=== PATIENT | female | born 1970 | race Caucasian/White ===

== ENCOUNTER → 2018-01-20 | Outpatient (CLI) | payer OTHER ==
--- NOTE | 2018-01-21 08:28 | MM ---
Reason for exam: screening (asymptomatic). Last mammogram was performed 1 year and 10 months ago. History: Benign left mammotome panel of the left breast, February 14, 2010. Physical Findings: A clinical breast exam by your physician is recommended on an annual basis and results should be correlated with mammographic findings. MG Screening Mammo w CAD Bilateral CC and MLO view(s) were taken. Prior study comparison: March 26, 2016, bilateral MG screening mammo w CAD. February 11, 2012, CAD bilateral diagnostic mammogram. The breast tissue is heterogeneously dense. This may lower the sensitivity of mammography. Stable calcifications in the left breast. There is no discrete abnormality. No significant changes when compared with prior studies. ASSESSMENT: Benign, BI-RAD 2 RECOMMENDATION: Routine screening mammogram of both breasts in 1 year.
== END | disposition home or self-care (01) ==
LOC: RADMAMWWP 14:21
PROVIDERS: ATTEND Family Medicine
DX: Z12.31 Encounter for screening mammogram for malignant neoplasm of breast (principal)
CPT/HCPCS: 77067

== ENCOUNTER 2018-02-08 04:48 | Emergency (ER) | payer OTHER ==
[2018-02-08 04:55] VITALS: BP 168/79; PULSE 111; RESP 20; TEMP 97.3
--- NOTE | 2018-02-08 05:13 | ED ---
General Adult HPI - General Chief complaint: Skin/Abscess/Foreign Body Stated complaint: bleeding post surgery Time Seen by Provider: 02/08/18 04:50 Source: patient, family, RN notes reviewed Mode of arrival: ambulatory Limitations: no limitations - History of Present Illness Initial comments: this is a 48-year-old female who states she had surgery on her right buttocks to remove melanoma on . Patient states since then she can't get it to stop bleeding and she continues to have blood coming from that site. Patient denies any increased pain. Patient denies any fever. Patient states she called her surgeon but was unable to go down and see him because she has no transportation. Patient denies any other symptoms. Patient denies any abdominal pain. Patient denies any blood thinners patient denies any other sites of bleeding. - Related Data Home Medications Medication Instructions Recorded Confirmed Vitamin D3(Unknown Dose) 1 tab PO HS 07/02/16 02/08/18 diphenhydrAMINE [Benadryl] 25 mg PO Q6HR PRN 07/02/16 02/08/18 oxyCODONE HCL [Oxyir] 5 mg PO Q6H PRN 02/08/18 02/08/18 Previous Rx's Medication Instructions Recorded Ranitidine HCl [Zantac] 300 mg PO HS #10 tab 07/02/16 predniSONE 50 mg PO DAILY #5 tab 07/02/16 Allergies Allergy/AdvReac Type Severity Reaction Status Date / Time sulfamethoxazole Allergy Rash/Hives Verified 02/08/18 04:54 [From Bactrim] trimethoprim [From Bactrim] Allergy Rash/Hives Verified 02/08/18 04:54 Review of Systems ROS Statement: Those systems with pertinent positive or pertinent negative responses have been documented in the HPI. ROS Other: All systems not noted in ROS Statement are negative. Past Medical History Past Medical History: No Reported History History of Any Multi-Drug Resistant Organisms: None Reported Past Surgical History: Appendectomy, Tubal Ligation Additional Past Surgical History / Comment(s): melanoma removed right buttock Past Anesthesia/Blood Transfusion Reactions: No Reported Reaction Past Psychological History: No Psychological Hx Reported Smoking Status: Never smoker Past Alcohol Use History: None Reported Past Drug Use History: None Reported General Exam - General Exam Comments Initial Comments: GENERAL Patient is well-developed and well-nourished. Patient is in mild distress. EYES Patient's pupils are equal and round. Extraocular motion is intact SKIN Unremarkable NEURO The patient is alert and oriented 3 PYSCH Patient has normal interpersonal interactions. MUSCULOSKELETAL Right buttocks has an surgical incision and there is clot hanging out of the medial aspect of the incision upon slight palpation large amounts of clotted blood came out of the incision site. Limitations: no limitations Course Vital Signs 02/08/18 04:50 Temperature 97.3 F L Pulse Rate 111 H Respiratory 20 Rate Blood Pressure 168/79 O2 Sat by Pulse 97 Oximetry Medical Decision Making - Medical Decision Making With some mild pressure I removed copious amounts of clotted blood. Disposition Clinical Impression: Hematoma of surgical wound of skin due to and after surgical procedure Disposition: HOME SELF-CARE Condition: Good Instructions: Hematoma (ED) Is patient prescribed a controlled substance at discharge?: No Referrals: Romain Marquez MD [Primary Care Provider] - 1-2 days Time of Disposition: 05:13
== END 2018-02-08 05:30 | disposition home or self-care (01) ==
LOC: EC 04:48
DX: L76.32 Postprocedural hematoma of skin and subcutaneous tissue following other procedure (principal); Z85.820 Personal history of malignant melanoma of skin; Z88.2 Allergy status to sulfonamides
CPT/HCPCS: 99283

== ENCOUNTER → 2018-06-02 | Outpatient (CLI) | payer OTHER ==
--- NOTE | 2018-06-03 16:01 | MR ---
EXAMINATION TYPE: MR brain wo/w con DATE OF EXAM: 06/02/2018 COMPARISON: NONE HISTORY: Melanoma TECHNIQUE: Multiplanar, multisequence images of the brain and brainstem is performed without and with IV contras t, utilizing 9.5 mL intravenous Gadavist . FINDINGS: Diffusion weighted images demonstrate no evidence of a recent infarct or other diffusion ab normality. There is no extra-axial fluid collection .There are 3 punctate foci of nonspecific white matter changes that are T2/FLAIR hyperintense. Two are seen within the left frontal lobe on image 17 of FLAIR and fat sat axial sequence and one seen within the right temporal lobe on image 10. The hari tricular system and cisternal spaces are normal in size and appearance. The brain volume is age appr opriate. Midline structures demonstrate normal morphology. The craniocervical junction appears within normal limits. Post contrast images demonstrate no abnormal enhancement. The dural venous sinuses appear pa tent. The visualized sinuses are clear and the globes are intact. IMPRESSION: 1. No evidence of intracranial metastasis or acute infarct. 2. Mild burden nonenhancing nonspecific white matter change, most commonly on the basis of microangio marko although in this distribution sequela of migraines could be considered.
== END | disposition home or self-care (01) ==
LOC: RADMRIMAIN 14:05
PROVIDERS: ATTEND Internal Medicine Hematology & Oncology
DX: R90.82 White matter disease, unspecified (principal); C43.51 Malignant melanoma of anal skin
CPT/HCPCS: 70553; A9581

== ENCOUNTER → 2018-06-11 | Outpatient (CLI) | payer OTHER ==
--- NOTE | 2018-06-12 21:59 | PE ---
EXAMINATION TYPE: PET CT fusion whole body DATE OF EXAM: 06/11/2018 COMPARISON: NONE HISTORY: Melanoma initial staging study diagnosed of the anal skin February 03, 2018 TECHNIQUE: Following the intravenous administration of 11.463 mCi of F-18 FDG, whole body images are performed from the top of skull to the bottom of feet. Images are reviewed on the computer in the c oronal, axial, and sagittal planes. Reconstructed rotating images are created on independent worksta tion and reviewed on the computer. A noncontrast CT is performed in conjunction with the PET scan. SCAN: Initial Scan FINDINGS: HEAD AND NECK: No suspicious hypermetabolic subcutaneous nodule or lymph node identified in the head or neck. CHEST, MEDIASTINUM, AND HILAR REGION: No suspicious hypermetabolic uptake is present. ABDOMEN AND PELVIS: No suspicious hypermetabolic uptake is identified. Asymmetric thickening without hypermetabolic uptake right aspect of the anus axial image 265 likely reflects healing scar from prio r melanoma excision. OSSEOUS STRUCTURES: No suspicious hypermetabolic uptake is seen. EXTREMITIES: No suspicious hypermetabolic uptake is seen OTHER CT: There is heterogeneous thyroid with multiple low-density calcified nodules. Underlying goit er is felt present. Consider thyroid ultrasound follow-up based on clinical correlation. No hypermeta bolic uptake is present. There is moderate to large size hiatal hernia. Mild cardiomegaly is present. Numerous at least 20 calcified gallstones are seen dependently in the gallbladder. There is surgical scarring right groin region. Some bilateral lateral tilting of patella is seen. IMPRESSION: No suspicious areas identified to suggest metastatic malignancy or metastatic melanoma.
== END | disposition home or self-care (01) ==
LOC: RADPETMAIN 16:52
PROVIDERS: ATTEND Internal Medicine Hematology & Oncology
DX: C43.51 Malignant melanoma of anal skin (principal)
CPT/HCPCS: 78816; A9552

== ENCOUNTER 2018-08-09 09:15 | Emergency (ER) | payer OTHER ==
[2018-08-09 09:41] VITALS: BP 126/74; PULSE 78; RESP 18; TEMP 98.5
--- NOTE | 2018-08-09 10:06 | XR ---
EXAMINATION TYPE: XR chest 2V DATE OF EXAM: 08/09/2018 COMPARISON: NONE HISTORY: Cough, congestion for 3 days, and chest pain. TECHNIQUE: Frontal and lateral views of the chest are obtained. FINDINGS: There is no focal air space opacity, pleural effusion, or pneumothorax seen. The cardiac silhouette size is within normal limits. The osseous structures are intact. There is a suspected sm all hiatal hernia and tortuosity descending thoracic aorta. IMPRESSION: No acute cardiopulmonary process.
--- NOTE | 2018-08-09 10:41 | ED ---
General Adult HPI - General Chief complaint: Upper Respiratory Infection Stated complaint: congestion,cough Time Seen by Provider: 08/09/18 10:18 Source: patient, RN notes reviewed Mode of arrival: ambulatory Limitations: no limitations - History of Present Illness Initial comments: Patient 48-year-old female presenting to the emergency room today with chief complaint of cough congestion over the last 3 days. She does admit to sinus congestion. She states that he felt that it has gone down to the chest. She does not that she's coughing. Has not production. Doesn't that she has a pain pill her chest when she coughs. Patient denies any other complaints or symptoms. Patient denies any recent fever, chills, shortness of breath, chest pain, back pain, abdominal pain, nausea or vomiting, numbness or tingling, headaches or visual changes, or any other complaints. - Related Data Home Medications Medication Instructions Recorded Confirmed Acetaminophen [Tylenol Extra 500 mg PO Q6H PRN 08/09/18 08/09/18 Strength] Docusate [Colace] 100 mg PO DAILY PRN 08/09/18 08/09/18 Previous Rx's Medication Instructions Recorded Fluticasone Propionate [Flonase 1 - 2 spray EA NOSTRIL DAILY 5 08/09/18 Allergy Relief] Days ml guaiFENesin 400 mg PO Q4-6H #30 tablet 08/09/18 Allergies Allergy/AdvReac Type Severity Reaction Status Date / Time sulfamethoxazole Allergy Rash/Hives Verified 08/09/18 10:41 [From Bactrim] trimethoprim [From Bactrim] Allergy Rash/Hives Verified 08/09/18 10:41 Review of Systems ROS Statement: Those systems with pertinent positive or pertinent negative responses have been documented in the HPI. ROS Other: All systems not noted in ROS Statement are negative. Past Medical History Past Medical History: No Reported History History of Any Multi-Drug Resistant Organisms: None Reported Past Surgical History: Appendectomy, Tubal Ligation Additional Past Surgical History / Comment(s): melanoma removed right buttock Past Anesthesia/Blood Transfusion Reactions: No Reported Reaction Past Psychological History: Depression Smoking Status: Never smoker Past Alcohol Use History: Rare Past Drug Use History: None Reported General Exam - General Exam Comments Initial Comments: General: The patient is awake and alert, in no distress, and does not appear acutely ill. Eye: Pupils are equal, round and reactive to light. Extra-ocular movements are intact. No nystagmus. There is normal conjunctiva bilaterally. No signs of icterus. Ears, nose, mouth and throat: There are moist mucous membranes and no oral lesions. Neck: The neck is supple, there is no tenderness or JVD. Cardiovascular: There is a regular rate and rhythm. No murmur, rub or gallop is appreciated. Respiratory: Lungs are clear to auscultation, respirations are non-labored, breath sounds are equal. No wheezes, stridor, rales, or rhonchi. Musculoskeletal: Normal ROM, no tenderness. Sensation intact. Strength 5/5. Pulses equal bilaterally 2+. Neurological: A&O x 3. CN II-XII intact, There are no obvious motor or sensory deficits. Coordination appears grossly intact. Speech is normal. Skin: Skin is warm and dry and no rashes or lesions are noted. Psychiatric: Cooperative, appropriate mood & affect, normal judgment. Limitations: no limitations Course Vital Signs 08/09/18 09:39 Temperature 98.5 F Pulse Rate 78 Respiratory 18 Rate Blood Pressure 126/74 O2 Sat by Pulse 96 Oximetry EKG Findings - EKG Comments: EKG Findings:: EKG performed at 1043: Shows normal sinus rhythm at 72 beats per minute. MS interval 138. QRS 84. QT/QTC 388/424. No Acute ST changes. Medical Decision Making - Medical Decision Making Patient does admit to cough congestion with sinus congestion over the last 3 days. She states she feels that it settled down to the chest. Her lung sounds are clear. Chest x-ray shows no sign of pneumonia no other acute abnormality. Her EKG shows normal sinus rhythm. She admits to pain to the anterior chest wall when she coughs. It is reproduced on palpation. This felt that this pain is muscular skeletal due to her coughing patient will be treated for sinus infection with Flonase from also given cough medication. Advised follow-up the family doctor next 2 days return if symptoms increase worsen. Disposition Clinical Impression: Acute sinusitis Disposition: HOME SELF-CARE Condition: Good Instructions: Sinusitis (ED) Additional Instructions: Please use medication as discussed. Please follow-up with family doctor in the next 2 days of symptoms have not improved. Please return to emergency room if the symptoms increase or worsen or for any other concerns. Prescriptions: Fluticasone Propionate [Flonase Allergy Relief] 1 - 2 spray EA NOSTRIL DAILY 5 Days ml guaiFENesin 400 mg PO Q4-6H #30 tablet Is patient prescribed a controlled substance at d/c from ED?: No Referrals: Romain Marquez MD [Primary Care Provider] - 1-2 days Time of Disposition: 11:13
== END 2018-08-09 11:23 | disposition home or self-care (01) ==
LOC: EC 09:15
DX: J01.90 Acute sinusitis, unspecified (principal); Z85.820 Personal history of malignant melanoma of skin; Z88.2 Allergy status to sulfonamides
CPT/HCPCS: 71046; 93005; 99283

== ENCOUNTER 2019-07-22 14:48 | Emergency (ER) | payer OTHER ==
[2019-07-22 14:55] VITALS: BP 143/74; PULSE 80; RESP 18; TEMP 98.3
--- NOTE | 2019-07-22 15:34 | ED ---
General Adult HPI - General Chief complaint: Extremity Injury, Lower Stated complaint: rt heel pain Time Seen by Provider: 07/22/19 15:04 Source: patient, RN notes reviewed, old records reviewed Mode of arrival: wheelchair Limitations: no limitations - History of Present Illness Initial comments: 49-year-old female patient since he chief complaint of right heel and ankle pain. Patient reports approximately 3 weeks ago she dropped a 60 pound box on the medial aspect of her right foot region. Patient reported since then she's had continued pain. Patient has been ambulatory but with pain. Patient denies any other injury, denies any other complaints. Systemic: Pt denies fatigue, fever/chills, rash. Pt denies weakness, night sweats, weight loss. Neuro: Pt denies headache, visual disturbances, syncope or pre-syncope. HEENT: Pt denies ocular discharge or irritation, otalgia, rhinorrhea, pharyngitis or notable lymphadenopathy. Cardiopulmonary: Pt denies chest pain, SOB, heart palpitations, dyspnea on exertion. Abdominal/GI: Pt denies abdominal pain, n/v/d. : Pt denies dysuria, burning w/ urination, frequency/urgency. Denies new onset urinary or bowel incontinence. MSK: Pt denies myalgia, loss of strength or function in extremities. Neuro: Pt denies new onset weakness, paresthesias. - Related Data Home Medications Medication Instructions Recorded Confirmed Acetaminophen [Tylenol Extra 500 mg PO Q6H PRN 08/09/18 08/09/18 Strength] Docusate [Colace] 100 mg PO DAILY PRN 08/09/18 08/09/18 Previous Rx's Medication Instructions Recorded Fluticasone Propionate [Flonase 1 - 2 spray EA NOSTRIL DAILY 5 08/09/18 Allergy Relief] Days ml guaiFENesin 400 mg PO Q4-6H #30 tablet 08/09/18 Allergies Allergy/AdvReac Type Severity Reaction Status Date / Time sulfamethoxazole Allergy Rash/Hives Verified 07/22/19 14:55 [From Bactrim] trimethoprim [From Bactrim] Allergy Rash/Hives Verified 07/22/19 14:55 Review of Systems ROS Statement: Those systems with pertinent positive or pertinent negative responses have been documented in the HPI. ROS Other: All systems not noted in ROS Statement are negative. Past Medical History Past Medical History: No Reported History History of Any Multi-Drug Resistant Organisms: None Reported Past Surgical History: Appendectomy, Tubal Ligation Additional Past Surgical History / Comment(s): melanoma removed right buttock Past Anesthesia/Blood Transfusion Reactions: No Reported Reaction Past Psychological History: Depression Smoking Status: Never smoker Past Alcohol Use History: Rare Past Drug Use History: None Reported General Exam - General Exam Comments Initial Comments: Constitutional: NAD, AOX3, Pt has pleasant affect. HEENT: NC/AT, trachea midline, neck supple, no lymphadenopathy. Posterior pharynx non erythematous, without exudates. External ears appear normal, without discharge. Mucous membranes moist. Eyes PERRLA, EOM intact. There is no scleral icterus. No pallor noted. Cardiopulmonary: RRR, no murmurs, rubs or gallops, no JVD noted. Lungs CTAB in anterior and posterior romero. No peripheral edema. Abdominal exam: Abdomen soft and non-distended. Abdomen non-tender to palpation in all 4 quadrants. Bowel sounds active in LLQ. No hepatosplenomegaly. No ecchymosis Neuro: CN II-XII grossly intact. No nuchal rigidity. No raccon eyes, no lemus sign, no hemotympanum. No cervical spinal tenderness. MSK: Medial aspect of right foot mildly tender to palpation. Posterior heel mildly tender to palpation. No ecchymoses, no skin changes, plantar and dorsiflexion intact. Capillary refill less than 2 seconds. Sensation intact. No proximal tibia/fibula tenderness. No other tenderness. No posterior calf tenderness bilaterally, homans sign negative bilaterally. Posterior tibialis and radial pulse +2 bilaterally. Sensation intact in upper and lower extremities. Full active ROM in upper and lower extremities, 5/5 stregnth. Limitations: no limitations Course Vital Signs 07/22/19 14:53 Temperature 98.3 F Pulse Rate 80 Respiratory 18 Rate Blood Pressure 143/74 O2 Sat by Pulse 99 Oximetry Medical Decision Making - Medical Decision Making 49-year-old female patient since he chief complaint of right heel and ankle pain. Patient reports approximately 3 weeks ago she dropped a 60 pound box on the medial aspect of her right foot region. Patient reported since then she's had continued pain. Patient has been ambulatory but with pain. Patient denies any other injury, denies any other complaints. She will signs stable, afebrile. Physical exam displayed: Medial aspect of right foot mildly tender to palpation. Posterior heel mildly tender to palpation. No ecchymoses, no skin changes, plantar and dorsiflexion intact. Capillary refill less than 2 seconds. Sensation intact. No proximal tibia/fibula tenderness. No other tenderness. Plain film of foot and ankle did not display acute process. Plantar and Achilles tendon calculi heel spurs are present. Patient laboratory. Patient was discharged with orthopedic follow-up. Case discussed with Dr. Beaver. Disposition Clinical Impression: Foot pain Disposition: HOME SELF-CARE Condition: Stable Instructions (If sedation given, give patient instructions): Heel Spur (ED) Additional Instructions: Patient to adhere to previously discussed treatment plan and will take medication(s) as directed. Patient to follow up with PCP in 1-2 days. Patient to return to ED if symptoms do not improve. Follow-up with primary care provider and orthopedic consult tomorrow. Return to ER condition worsens. Is patient prescribed a controlled substance at d/c from ED?: No Referrals: Romain Marquez MD [Primary Care Provider] - 1-2 days Luis Hyde PAC [PHYSICIAN FI[employer]AR OPERATOR] - 1-2 days
--- NOTE | 2019-07-22 16:33 | XR ---
EXAMINATION TYPE: XR ankle complete RT DATE OF EXAM: 07/22/2019 COMPARISON: None HISTORY: Pain, dropped box on foot 3 weeks prior TECHNIQUE: Three-view right ankle FINDINGS: No acute fractures or dislocations are evident. Soft tissues appear normal. Ankle mortise i s intact. Plantar and Achilles tendon calcaneal heel spurs are present. IMPRESSION: 1. Normal three-view right ankle
--- NOTE | 2019-07-22 16:49 | XR ---
EXAMINATION TYPE: XR foot complete RT DATE OF EXAM: 07/22/2019 COMPARISON: None HISTORY: Dropped box on foot TECHNIQUE: Three-view right foot FINDINGS: No acute fractures or dislocations are evident. Joint spaces are preserved. Soft tissues ap pear normal. Plantar and Achilles tendon calcaneal heel spurs are present. IMPRESSION: 1. Three-view right foot
== END 2019-07-22 17:30 | disposition home or self-care (01) ==
LOC: EC 14:48
DX: M77.31 Calcaneal spur, right foot (principal); Z85.820 Personal history of malignant melanoma of skin; Z88.2 Allergy status to sulfonamides
CPT/HCPCS: 99284

== ENCOUNTER → 2019-09-05 | Outpatient (CLI) | payer OTHER ==
--- NOTE | 2019-09-06 10:11 | MM ---
Reason for exam: screening (asymptomatic). Last mammogram was performed 1 year and 7 months ago. History: Benign left mammotome panel of the left breast, February 14, 2010. Physical Findings: A clinical breast exam by your physician is recommended on an annual basis and results should be correlated with mammographic findings. MG Screening Mammo w CAD Bilateral CC and MLO view(s) were taken. Prior study comparison: January 20, 2018, bilateral MG screening mammo w CAD. March 26, 2016, bilateral MG screening mammo w CAD. The breast tissue is heterogeneously dense. This may lower the sensitivity of mammography. Benign appearing punctate bilateral calcifications. No suspicious abnormality. Left biopsy marker noted. No significant changes when compared with prior studies. ASSESSMENT: Benign, BI-RAD 2 RECOMMENDATION: Routine screening mammogram of both breasts in 1 year.
== END | disposition home or self-care (01) ==
LOC: RADMAMWWP 13:41
PROVIDERS: ATTEND Family Medicine
DX: Z12.31 Encounter for screening mammogram for malignant neoplasm of breast (principal)
CPT/HCPCS: 77067

== ENCOUNTER 2020-07-06 01:07 | Emergency (ER) | payer OTHER ==
[2020-07-06 01:12] VITALS: BP 143/84; PULSE 85; RESP 18; TEMP 98.2
[2020-07-06] MEDS ORDERED: dexAMETHasone 4 MG TAB PO STA (01:29)
--- NOTE | 2020-07-06 01:30 | ED ---
ENT HPI - General Chief complaint: ENT Stated complaint: Sore throat Time Seen by Provider: 07/06/20 01:19 Source: patient, family Mode of arrival: ambulatory Limitations: no limitations - History of Present Illness Initial comments: 50-year-old female presenting today for chief complaint of sore throat congestion and cough. Patient states she's had a sore throat congestion cough for the past 2 day she states is painful to swallow but she is able to do it she states she has tolerated oral secretions she denies any stridor. Patient denies any headache neck stiffness or fevers. Patient states she initially thought it was ALLERGIES believes that it could be she states she is taking Claritin for the past 2 days. Patient has no additional complaints she denies any chest pain or shortness of breath she appears well nontoxic on arrival in no acute respiratory distress. - Related Data Home Medications Medication Instructions Recorded Confirmed Acetaminophen [Tylenol Extra 500 mg PO Q6H PRN 08/09/18 08/09/18 Strength] Docusate [Colace] 100 mg PO DAILY PRN 08/09/18 08/09/18 Previous Rx's Medication Instructions Recorded Fluticasone Propionate [Flonase 1 - 2 spray EA NOSTRIL DAILY 5 08/09/18 Allergy Relief] Days ml guaiFENesin 400 mg PO Q4-6H #30 tablet 08/09/18 Allergies Allergy/AdvReac Type Severity Reaction Status Date / Time sulfamethoxazole Allergy Rash/Hives Verified 07/06/20 01:12 [From Bactrim] trimethoprim [From Bactrim] Allergy Rash/Hives Verified 07/06/20 01:12 Review of Systems ROS Statement: Those systems with pertinent positive or pertinent negative responses have been documented in the HPI. ROS Other: All systems not noted in ROS Statement are negative. Past Medical History Past Medical History: No Reported History History of Any Multi-Drug Resistant Organisms: None Reported Past Surgical History: Appendectomy, Tubal Ligation Additional Past Surgical History / Comment(s): melanoma removed right buttock Past Anesthesia/Blood Transfusion Reactions: No Reported Reaction Past Psychological History: Depression Smoking Status: Former smoker Past Alcohol Use History: Rare Past Drug Use History: None Reported General Exam - General Exam Comments Initial Comments: General: The patient is awake and alert, in no distress Eye: +3 mm pupils are equal, round and reactive to light, extra-ocular movements are intact. No nystagmus. There is normal conjunctiva bilaterally. No signs of icterus. Ears, nose, mouth and throat: There are moist mucous membranes and no oral lesions. Uvula midline. No tonsillar exudates. No tonsillar enlargement or masses. No tripoding drooling or stridor. Patient tolerating oral secretions Neck: The neck is supple, there is no tenderness or JVD. Cardiovascular: There is a regular rate and rhythm. No murmur, rub or gallop is appreciated. Respiratory: Lungs are clear to auscultation, respirations are non-labored, breath sounds are equal. No wheezes, stridor, rales, or rhonchi. Gastrointestinal: Soft, non-distended, non-tender abdomen without masses or organomegaly noted. There is no rebound or guarding present. Musculoskeletal: Normal ROM, no tenderness. Strength 5/5. Sensation intact. Radial pulses equal bilaterally 2+. Neurological: A&O x 3. CN II-XII intact grossly, There are no obvious motor or sensory deficits. Coordination appears grossly intact. Speech is normal. Skin: Skin is warm and dry and no rashes or lesions are noted. Psychiatric: Cooperative, appropriate mood & affect, normal judgment. Limitations: no limitations Course Vital Signs 07/06/20 01:08 Temperature 98.2 F Pulse Rate 85 Respiratory 18 Rate Blood Pressure 143/84 O2 Sat by Pulse 98 Oximetry Medical Decision Making - Medical Decision Making 50yo nontoxic appearing female presenting for sore throat, mild cough, congestion. Lungs clear. No fevers. Throat mild erythema no lesions. Uvulamidline. does not appear in distress. Patient swabs for strep and covid. She will be given decadron and discharged with PCP f/u, return for worsenign symptoms. Feel this is most likely viral in nature given the congestion cough with the sore throat. - Lab Data Lab Results 07/06/20 Range/Units 01:30 Group A Strep Rapid Negative (Negative) Disposition Clinical Impression: Congestion of nasal sinus, Pharyngitis Disposition: HOME SELF-CARE Condition: Good Instructions (If sedation given, give patient instructions): Upper Respiratory Infection (ED) Additional Instructions: Please use medication as discussed. Please follow-up with family doctor in the next 2 days.. Please return to emergency room if the symptoms increase or worsen or for any other concerns. Is patient prescribed a controlled substance at d/c from ED?: No Referrals: Romain Marquez MD [Primary Care Provider] - 1-2 days Time of Disposition: 01:30
== END 2020-07-06 01:40 | disposition home or self-care (01) ==
LOC: EC 01:07
DX: J02.9 Acute pharyngitis, unspecified (principal); R09.81 Nasal congestion; Z88.2 Allergy status to sulfonamides; Z88.1 Allergy status to other antibiotic agents; Z85.820 Personal history of malignant melanoma of skin; Z87.891 Personal history of nicotine dependence; Z20.828 Contact with and (suspected) exposure to other viral communicable diseases
CPT/HCPCS: 87081; 87430; 99283; U0003; J8540

== ENCOUNTER 2021-02-13 13:18 | Emergency (ER) | payer OTHER ==
[2021-02-13 13:23] VITALS: TEMP 97.9
[2021-02-13] MEDS ORDERED: KETOROLAC 15 MG/ML 1 ML VIAL IVP STA (13:47)
--- NOTE | 2021-02-13 13:51 | ED ---
General Adult HPI - General Chief complaint: Chest Pain Stated complaint: left arm pain and numbness Time Seen by Provider: 02/13/21 13:20 Source: patient, RN notes reviewed, old records reviewed Mode of arrival: wheelchair Limitations: no limitations - History of Present Illness Initial comments: This is a 51-year-old female with past medical history significant for hypertension. Patient also smoked but quit 20 years ago. Patient comes in today because she started having some sharp chest pain on the left side and in the middle of her chest which is reproducible with movement and also with palpation. Patient states she thinks she was a little short of breath but it may have dispensed anxiety because of the pain. Patient states she thought she felt a little numbness in the upper left arm but she has normal sensation there. Patient denies any recent fever chills or cough. Patient denies any diaphoretic episodes. Patient denies abdominal pain patient denies nausea vomiting diarrhea per patient denies any leg swelling or calf tenderness. Patient states she thinks she might of her self all working yesterday. - Related Data Home Medications Medication Instructions Recorded Confirmed Acetaminophen [Tylenol Extra 1,000 mg PO Q6H PRN 08/09/18 02/13/21 Strength] Docusate [Colace] 100 mg PO DAILY PRN 08/09/18 02/13/21 Chlorthalidone [Hygroton] 25 mg PO DAILY 02/13/21 02/13/21 Cholecalciferol [Vitamin D3 (25 25 mcg PO DAILY 02/13/21 02/13/21 Mcg = 1000 Iu)] Hydrocortisone Cream 1 applic TOPICAL BID PRN 02/13/21 02/13/21 [Hydrocortisone 2.5% Cream] Ibuprofen [Motrin] 800 mg PO Q8H PRN 02/13/21 02/13/21 Previous Rx's Medication Instructions Recorded Ibuprofen [Motrin] 600 mg PO Q6HR PRN #20 tab 02/13/21 Allergies Allergy/AdvReac Type Severity Reaction Status Date / Time sulfamethoxazole Allergy Rash/Hives Verified 02/13/21 14:41 [From Bactrim] trimethoprim [From Bactrim] Allergy Rash/Hives Verified 02/13/21 14:41 Review of Systems ROS Statement: Those systems with pertinent positive or pertinent negative responses have been documented in the HPI. ROS Other: All systems not noted in ROS Statement are negative. Past Medical History Past Medical History: No Reported History History of Any Multi-Drug Resistant Organisms: None Reported Past Surgical History: Appendectomy, Tubal Ligation Additional Past Surgical History / Comment(s): melanoma removed right buttock Past Anesthesia/Blood Transfusion Reactions: No Reported Reaction Past Psychological History: Depression Smoking Status: Former smoker Past Alcohol Use History: Rare Past Drug Use History: None Reported General Exam - General Exam Comments Initial Comments: GENERAL: Patient is well-developed and well-nourished. Patient is nontoxic and well-h ydrated and is in mild distress. ENT: Neck is soft and supple. No significant lymphadenopathy is noted. Oropharynx is clear. Moist mucous membranes. Neck has full range of motion without eliciting any pain. EYES: The sclera were anicteric and conjunctiva were pink and moist. Extraocular move ments were intact and pupils were equal round and reactive to light. Eyelids were unremarkable. PULMONARY: Unlabored respirations. Good breath sounds bilaterally. No audible rales rhonchi or wheezing was noted. CARDIOVASCULAR: There is a regular rate and rhythm without any murmurs gallops or rubs. Chest pain is reproducible with palpation and with movement of her arms. ABDOMEN: Soft and nontender with normal bowel sounds. SKIN: Skin is clear with no lesions or rashes and otherwise unremarkable. NEUROLOGIC: Patient is alert and oriented x3. Cranial nerves II through XII are grossly in tact. Motor and sensory are also intact. Patient has full sensation of the left arm. Normal speech, volume and content. Symmetrical smile. MUSCULOSKELETAL: Normal extremities with adequate strength and full range of motion. LYMPHATICS: No significant lymphadenopathy is noted PSYCHIATRIC: Normal psychiatric evaluation. Limitations: no limitations Course Vital Signs 02/13/21 02/13/21 13:20 14:05 Temperature 97.9 F Pulse Rate 77 Pulse Rate [ 75 [employer] ] Respiratory 18 Rate Blood Pressure 137/76 O2 Sat by Pulse 98 Oximetry Medical Decision Making - Medical Decision Making EKG shows normal sinus rhythm at 76 bpm NM interval is on a 44 QRS is 90 QT intervals 42 QTC is 452. Patient's EKG shows no ST segment elevation. Chest x-ray shows no acute abnormality. Patient received Toradol emergency department she was feeling considerably better afterwards. - Lab Data Result diagrams: 02/13/21 13:47 02/13/21 13:47 Lab Results 0402/13/21 02/13/21 Range/Units 13:47 13:47 13:47 WBC 6.4 (3.8-10.6) k/uL RBC 5.02 (3.80-5.40) m/uL Hgb 14.7 (11.4-16.0) gm/dL Hct 46.1 H (34.0-46.0) % MCV 91.9 (80.0-100.0) fL MCH 29.2 (25.0-35.0) pg MCHC 31.8 (31.0-37.0) g/dL RDW 14.7 (11.5-15.5) % Plt Count 320 (150-450) k/uL MPV 7.2 Neutrophils % 70 % Lymphocytes % 24 % Monocytes % 3 % Eosinophils % 1 % Basophils % 1 % Neutrophils # 4.4 (1.3-7.7) k/uL Lymphocytes # 1.5 (1.0-4.8) k/uL Monocytes # 0.2 (0-1.0) k/uL Eosinophils # 0.1 (0-0.7) k/uL Basophils # 0.0 (0-0.2) k/uL PT 10.4 (9.0-12.0) sec INR 1.0 (<1.2) APTT 24.5 (22.0-30.0) sec Sodium 138 (137-145) mmol/L Potassium 3.5 (3.5-5.1) mmol/L Chloride 97 L (98-107) mmol/L Carbon Dioxide 29 (22-30) mmol/L Anion Gap 12 mmol/L BUN 16 (7-17) mg/dL Creatinine 0.93 (0.52-1.04) mg/dL Est GFR (CKD-EPI)AfAm 82 (>60 ml/min/1.73 sqM) Est GFR (CKD-EPI)NonAf 71 (>60 ml/min/1.73 sqM) Glucose 120 H (74-99) mg/dL Calcium 10.3 H (8.4-10.2) mg/dL Magnesium 1.7 (1.6-2.3) mg/dL Total Bilirubin 0.5 (0.2-1.3) mg/dL AST 20 (14-36) U/L ALT 16 (4-34) U/L Alkaline Phosphatase 82 (38-126) U/L Troponin I (0.000-0.034) ng/mL Total Protein 8.3 H (6.3-8.2) g/dL Albumin 5.0 (3.5-5.0) g/dL 02/13/21 Range/Units 13:47 WBC (3.8-10.6) k/uL RBC (3.80-5.40) m/uL Hgb (11.4-16.0) gm/dL Hct (34.0-46.0) % MCV (80.0-100.0) fL MCH (25.0-35.0) pg MCHC (31.0-37.0) g/dL RDW (11.5-15.5) % Plt Count (150-450) k/uL MPV Neutrophils % % Lymphocytes % % Monocytes % % Eosinophils % % Basophils % % Neutrophils # (1.3-7.7) k/uL Lymphocytes # (1.0-4.8) k/uL Monocytes # (0-1.0) k/uL Eosinophils # (0-0.7) k/uL Basophils # (0-0.2) k/uL PT (9.0-12.0) sec INR (<1.2) APTT (22.0-30.0) sec Sodium (137-145) mmol/L Potassium (3.5-5.1) mmol/L Chloride (98-107) mmol/L Carbon Dioxide (22-30) mmol/L Anion Gap mmol/L BUN (7-17) mg/dL Creatinine (0.52-1.04) mg/dL Est GFR (CKD-EPI)AfAm (>60 ml/min/1.73 sqM) Est GFR (CKD-EPI)NonAf (>60 ml/min/1.73 sqM) Glucose (74-99) mg/dL Calcium (8.4-10.2) mg/dL Magnesium (1.6-2.3) mg/dL Total Bilirubin (0.2-1.3) mg/dL AST (14-36) U/L ALT (4-34) U/L Alkaline Phosphatase (38-126) U/L Troponin I <0.012 (0.000-0.034) ng/mL Total Protein (6.3-8.2) g/dL Albumin (3.5-5.0) g/dL Disposition Clinical Impression: Musculoskeletal chest pain Disposition: HOME SELF-CARE Instructions (If sedation given, give patient instructions): Chest Pain (ED) Prescriptions: Ibuprofen [Motrin] 600 mg PO Q6HR PRN #20 tab PRN Reason: For pain Is patient prescribed a controlled substance at d/c from ED?: No Referrals: Romain Marquez MD [Primary Care Provider] - 1-2 days Time of Disposition: 16:11
[2021-02-13 14:03] LABS: Basophils % (A) 1 %; Eosinophils # (A) 0.1 k/uL (0-0.7); Eosinophils % (A) 1 %; HCT 46.1 % (34.0-46.0); HGB 14.7 gm/dL (11.4-16.0); Lymphocytes # (A) 1.5 k/uL (1.0-4.8); Lymphocytes % (A) 24 %; MCH 29.2 pg (25.0-35.0); MCHC 31.8 g/dL (31.0-37.0); MCV 91.9 fL (80.0-100.0); Mean Platelet Volume 7.2; Monocytes # (A) 0.2 k/uL (0-1.0); Monocytes % (A) 3 %; Neutrophils # (A) 4.4 k/uL (1.3-7.7); Neutrophils % (A) 70 %; Platelet Count 320 k/uL (150-450); RBC 5.02 m/uL (3.80-5.40); RDW 14.7 % (11.5-15.5); WBC 6.4 k/uL (3.8-10.6)
--- NOTE | 2021-02-13 14:10 | XR ---
EXAMINATION TYPE: XR chest 2V DATE OF EXAM: 02/13/2021 COMPARISON: Chest x-ray August 09, 2018 HISTORY: Left-sided chest pain. TECHNIQUE: Frontal and lateral views of the chest are obtained. FINDINGS: Diminished inspiration on current study. There is no new suspicious focal air space opacity , pleural effusion, or pneumothorax seen. The cardiac silhouette size is more prominent and mildly e nlarged. Retrocardiac opacity consistent with moderate size hiatal hernia is redemonstrated and confi rmed on PET/CT 2018. The osseous structures are intact. IMPRESSION: No acute cardiopulmonary process. No significant change from prior.
[2021-02-13 14:11] LABS: Partial Thromboplastin Time 24.5 sec (22.0-30.0); Prothrombin Time 10.4 sec (9.0-12.0)
[2021-02-13 15:37] LABS: Calcium 10.3 mg/dL (8.4-10.2); Magnesium 1.7 mg/dL (1.6-2.3); Potassium 3.5 mmol/L (3.5-5.1); Total Bilirubin 0.5 mg/dL (0.2-1.3); Total Protein 8.3 g/dL (6.3-8.2)
[2021-02-13 16:22] VITALS: BP 129/65; PULSE 70; RESP 16
== END 2021-02-13 16:26 | disposition home or self-care (01) ==
LOC: EC 13:18
DX: R07.9 Chest pain, unspecified (principal); R20.0 Anesthesia of skin; M79.602 Pain in left arm; Z87.891 Personal history of nicotine dependence; Z88.1 Allergy status to other antibiotic agents; Z88.2 Allergy status to sulfonamides; Z85.820 Personal history of malignant melanoma of skin
CPT/HCPCS: 36415; 71046; 80053; 83735; 84484; 85025; 85610; 85730; 93005; 96374; 99285

== ENCOUNTER 2022-07-29 12:11 | Emergency (ER) | payer OTHER ==
[2022-07-29 12:22] VITALS: BP 162/80; PULSE 79; RESP 16; TEMP 98.2
[2022-07-29] MEDS ORDERED: ACET/COD 300 MG/30 MG STARTER PACK 6 TAB BTL PO STA (12:32)
--- NOTE | 2022-07-29 12:33 | ED ---
ENT HPI - General Chief complaint: Dental/Oral Stated complaint: rt side facial edema Time Seen by Provider: 07/29/22 12:23 Source: patient, RN notes reviewed Mode of arrival: ambulatory Limitations: no limitations - History of Present Illness Initial comments: 52-year-old female presents emergency Department with chief complaint of dental pain. She states the right upper area by her right ear, right upper molar. Patient states started a few days ago. Patient states that she's had no fevers chills and difficulty swallowing. Patient has ALLERGY to Bactrim. - Related Data Home Medications Medication Instructions Recorded Confirmed Acetaminophen [Tylenol Extra 1,000 mg PO Q6H PRN 08/09/18 02/13/21 Strength] Docusate [Colace] 100 mg PO DAILY PRN 08/09/18 02/13/21 Chlorthalidone [Hygroton] 25 mg PO DAILY 02/13/21 02/13/21 Cholecalciferol [Vitamin D3 (25 25 mcg PO DAILY 02/13/21 02/13/21 Mcg = 1000 Iu)] Hydrocortisone Cream 1 applic TOPICAL BID PRN 02/13/21 02/13/21 [Hydrocortisone 2.5% Cream] Ibuprofen [Motrin] 800 mg PO Q8H PRN 02/13/21 02/13/21 Previous Rx's Medication Instructions Recorded Ibuprofen [Motrin] 600 mg PO Q6HR PRN #20 tab 02/13/21 Ibuprofen [Motrin] 600 mg PO Q8HR PRN #20 tab 07/29/22 Penicillin V Potassium [Pen Vee K] 500 mg PO QID #40 tablet 07/29/22 Allergies Allergy/AdvReac Type Severity Reaction Status Date / Time sulfamethoxazole Allergy Rash/Hives Verified 07/29/22 12:22 [From Bactrim] trimethoprim [From Bactrim] Allergy Rash/Hives Verified 07/29/22 12:22 Review of Systems ROS Statement: Those systems with pertinent positive or pertinent negative responses have been documented in the HPI. ROS Other: All systems not noted in ROS Statement are negative. Past Medical History Past Medical History: No Reported History History of Any Multi-Drug Resistant Organisms: None Reported Past Surgical History: Appendectomy, Tubal Ligation Additional Past Surgical History / Comment(s): melanoma removed right buttock Past Anesthesia/Blood Transfusion Reactions: No Reported Reaction Past Psychological History: Depression Smoking Status: Former smoker Past Alcohol Use History: Rare Past Drug Use History: None Reported General Exam Limitations: no limitations General appearance: alert, in no apparent distress Head exam: Present: atraumatic, normocephalic, normal inspection Eye exam: Present: normal appearance, PERRL, EOMI. Absent: scleral icterus, conjunctival injection, periorbital swelling ENT exam: Present: normal exam, mucous membranes moist, TM's normal bilaterally. Absent: normal oropharynx (mild right upper erythema and swelling), normal external ear exam (right cerumen) Neck exam: Present: normal inspection, full ROM. Absent: tenderness, meningismus, lymphadenopathy Respiratory exam: Present: normal lung sounds bilaterally. Absent: respiratory distress, wheezes, rales, rhonchi, stridor Cardiovascular Exam: Present: regular rate, normal rhythm, normal heart sounds. Absent: systolic murmur, diastolic murmur, rubs, gallop, clicks Course Vital Signs 07/29/22 12:19 Temperature 98.2 F Pulse Rate 79 Respiratory 16 Rate Blood Pressure 162/80 O2 Sat by Pulse 98 Oximetry Medical Decision Making - Medical Decision Making patient has right upper dental infection no drainable abscess. started on pen Vk and motrin 600mg. return parameters discussed Disposition Clinical Impression: Dental infection Disposition: HOME SELF-CARE Condition: Stable Instructions (If sedation given, give patient instructions): Toothache (ED) Additional Instructions: Please return to the Emergency Department if symptoms worsen or any other concerns. Prescriptions: Ibuprofen [Motrin] 600 mg PO Q8HR PRN #20 tab PRN Reason: Pain Penicillin V Potassium [Pen Vee K] 500 mg PO QID #40 tablet Is patient prescribed a controlled substance at d/c from ED?: No Referrals: Romain Marquez MD [Primary Care Provider] - 1-2 days Time of Disposition: 12:33
== END 2022-07-29 12:48 | disposition home or self-care (01) ==
LOC: EC 12:11
DX: K04.7 Periapical abscess without sinus (principal); F32.A Depression, unspecified; Z87.891 Personal history of nicotine dependence; Z88.2 Allergy status to sulfonamides; Z79.899 Other long term (current) drug therapy
CPT/HCPCS: 99283

== ENCOUNTER 2023-08-23 11:25 | Emergency (ER) | payer OTHER ==
--- NOTE | 2023-08-23 11:38 | ED ---
URI HPI - General Source: patient, RN notes reviewed Mode of arrival: ambulatory Limitations: no limitations <Meliton Ulloa - Last Filed: 08/23/23 11:37> <Xochilt Hurt - Last Filed: 08/23/23 13:45> - General Chief Complaint: Upper Respiratory Infection Stated Complaint: cough,headache Time Seen by Provider: 08/23/23 11:37 - History of Present Illness Initial Comments: 53-year-old female presents emergency Department chief complaint cough congestion. States that she has not felt well for last few days she does complain of headache mildly productive cough. She states she has nasal congestion sore throat possible fever along with body aches. (Meliton Ulloa) Patient is a 53-year-old female presented ER with chief complaint of cough/congestion. Patient states she started with a sore throat and headache and now is complaining of congestion and cough. Patient states she had a temp erature of 100.1 on Wednesday. She has been taking Sudafed with slight relief. Patient reports while at work today she had a coughing episode where she coughed up a small amount of blood. She admits to numerous sick contacts at work. Patient denies ear pain, chest pain/palpitations, shortness of breath, wheezing, abdominal pain, peripheral edema. (Xochilt Hurt) - Related Data Home Medications Medication Instructions Recorded Confirmed Acetaminophen [Tylenol Extra 1,000 mg PO Q6H PRN 08/09/18 02/13/21 Strength] Docusate [Colace] 100 mg PO DAILY PRN 08/09/18 02/13/21 Chlorthalidone [Hygroton] 25 mg PO DAILY 02/13/21 02/13/21 Cholecalciferol [Vitamin D3 (25 25 mcg PO DAILY 02/13/21 02/13/21 Mcg = 1000 Iu)] Hydrocortisone Cream 1 applic TOPICAL BID PRN 02/13/21 02/13/21 [Hydrocortisone 2.5% Cream] Ibuprofen [Motrin] 800 mg PO Q8H PRN 02/13/21 02/13/21 Previous Rx's Medication Instructions Recorded Ibuprofen [Motrin] 600 mg PO Q6HR PRN #20 tab 02/13/21 Ibuprofen [Motrin] 600 mg PO Q8HR PRN #20 tab 07/29/22 Penicillin V Potassium [Pen Vee K] 500 mg PO QID #40 tablet 07/29/22 Allergies Allergy/AdvReac Type Severity Reaction Status Date / Time sulfamethoxazole Allergy Rash/Hives Verified 08/23/23 11:32 [From Bactrim] trimethoprim [From Bactrim] Allergy Rash/Hives Verified 08/23/23 11:32 Review of Systems ROS Other: All systems not noted in ROS Statement are negative. <Meliton Ulloa - Last Filed: 08/23/23 11:37> ROS Other: All systems not noted in ROS Statement are negative. <Xochilt Hurt - Last Filed: 08/23/23 13:45> ROS Statement: Those systems with pertinent positive or pertinent negative responses have been documented in the HPI. Past Medical History Past Medical History: No Reported History History of Any Multi-Drug Resistant Organisms: None Reported Past Surgical History: Appendectomy, Tubal Ligation Additional Past Surgical History / Comment(s): melanoma removed right buttock Past Anesthesia/Blood Transfusion Reactions: No Reported Reaction Past Psychological History: Depression Smoking Status: Former smoker Past Alcohol Use History: Rare Past Drug Use History: None Reported <Meliton Ulloa - Last Filed: 08/23/23 11:37> General Exam Limitations: no limitations <Meliton Ulloa - Last Filed: 08/23/23 11:37> General appearance: alert, in no apparent distress Eye exam: Present: normal appearance, PERRL, EOMI. Absent: scleral icterus, conjunctival injection, periorbital swelling ENT exam: Present: normal exam, mucous membranes moist (erythematous nasopharynx ), TM's normal bilaterally Respiratory exam: Present: normal lung sounds bilaterally. Absent: respiratory distress, wheezes, rales, rhonchi, stridor Cardiovascular Exam: Present: regular rate, normal rhythm, normal heart sounds. Absent: systolic murmur, diastolic murmur, rubs, gallop, clicks GI/Abdominal exam: Present: soft, normal bowel sounds. Absent: distended, tenderness, guarding, rebound, rigid Neurological exam: Present: alert, oriented X3, CN II-XII intact Psychiatric exam: Present: normal affect, normal mood <Xochilt Hurt - Last Filed: 08/23/23 13:45> - General Exam Comments Initial Comments: Visual Physical Exam Vital signs reviewed General: Well-appearing, nontoxic, no acute distress. Head: Normocephalic, atraumatic Eyes: PERRLA, EOMI ENT: Airway patent Chest: Nonlabored breathing Skin: No visual rash, normal skin tone Neuro: Alert and oriented 3 Musculoskeletal: No gross abnormalities (Meliton Ulloa) Course Vital Signs 08/23/23 11:30 Temperature 98.3 F Pulse Rate 90 Respiratory 18 Rate Blood Pressure 124/71 O2 Sat by Pulse 98 Oximetry Medical Decision Making <Meliton Ulloa - Last Filed: 08/23/23 11:37> - Radiology Data Radiology results: report reviewed, image reviewed <Xochilt Hurt - Last Filed: 08/23/23 13:45> - Medical Decision Making I performed a quick note portion of this chart signed Meliton Ulloa PA-C (Meliton Ulloa) Was pt. sent in by a medical professional or institution (KAYLENE Bui, HOME HEALTH CLINICAL SUPERVISOR, urgent care, hospital, or long term...) When possible be specific @ -No Did you speak to anyone other than the patient for history (EMS, parent, family, police, friend...)? What history was obtained from this source @ -No Did you review nursing and triage notes (agree or disagree)? Why? @ -I reviewed and agree with nursing and triage notes Were old charts reviewed (outside hosp., previous admission, EMS record, old EKG, old radiological studies, urgent care reports/EKG's, long term records)? Report findings @ -No old charts were reviewed Differential Diagnosis (chest pain, altered mental status, abdominal pain women, abdominal pain men, vaginal bleeding, weakness, fever, dyspnea, syncope, headache, dizziness, GI bleed, back pain, seizure, CVA, palpatations, mental health, musculoskeletal)? @ -COVID-19, influenza, RSV, viral URI EKG interpreted by me (3pts min.). @ -None X-rays interpreted by me (1pt min.). @ -Chest x-ray shows no acute processes. Large hiatal hernia noted. Hypertrophic degenerative changes of the spine noted. CT interpreted by me (1pt min.). @ -None done U/S interpreted by me (1pt. min.). @ -None done What testing was considered but not performed or refused? (CT, X-rays, U/S, labs)? Why? @ -None What meds were considered but not given or refused? Why? @ -None Did you discuss the management of the patient with other professionals (professionals i.e. , PA, HOME HEALTH CLINICAL SUPERVISOR, lab, RT, psych nurse, hospice social worker, buggy ladle tender, teacher, chief security and safety officer, case work aide)? Give summary @ -No Was smoking cessation discussed for >3mins.? @ -No Was critical care preformed (if so, how long)? @ -No Were there social determinants of health that impacted care today? How? (Homelessness, low income, unemployed, alcoholism, drug addiction, transportation, low edu. Level, literacy, decrease access to med. care, custodial, rehab)? @ -No Was there de-escalation of care discussed even if they declined (Discuss DNR or withdrawal of care, Hospice)? DNR status @ -No What co-morbidities impacted this encounter? (DM, HTN, Smoking, COPD, CAD, Cancer, CVA, ARF, Chemo, Hep., AIDS, mental health diagnosis, sleep apnea, morbid obesity)? @ -None Was patient admitted / discharged? Hospital course, mention meds given and route, prescriptions, significant lab abnormalities, going to OR and other pertinent info. @ -Patient is a 53-year-old female presenting to the ER with chief complaint of URI. COVID-19 swab is positive. Chest x-ray negative for acute processes. Patient will be discharged in stable condition and advised to take Tylenol/Motrin for her symptoms. Patient to follow-up with PCP for further care. Undiagnosed new problem with uncertain prognosis? @ -No Drug Therapy requiring intensive monitoring for toxicity (Heparin, Nitro, Insulin, Cardizem)? @ -No Were any procedures done? @ -No Diagnosis/symptom? @ -COVID-19 Acute, or Chronic, or Acute on Chronic? @ -Acute Uncomplicated (without systemic symptoms) or Complicated (systemic symptoms)? @ -Uncomplicated Side effects of treatment? @ -No Exacerbation, Progression, or Severe Exacerbation? @ -No Poses a threat to life or bodily function? How? (Chest pain, USA, NM, pneumonia, PE, COPD, DKA, ARF, appy, cholecystitis, CVA, Diverticulitis, Homicidal, Suicidal, threat to staff... and all critical care pts) @ -No (Stariha,Xochilt) - Lab Data Lab Results 08/23/23 Range/Units 11:32 Influenza Type A (PCR) Not Detected (Not Detectd) Influenza Type B (PCR) Not Detected (Not Detectd) RSV (PCR) Not Detected (Not Detectd) SARS-CoV-2 (PCR) Detected A (Not Detectd) Disposition <Meliton Ulloa - Last Filed: 08/23/23 11:37> Is patient prescribed a controlled substance at d/c from ED?: No Time of Disposition: 13:45 Decision Time: 13:45 <Xochilt Hurt - Last Filed: 08/23/23 13:45> Clinical Impression: COVID-19 Disposition: HOME SELF-CARE Condition: Stable Instructions (If sedation given, give patient instructions): COVID-19 (Coronavirus Disease 2019) (ED) Additional Instructions: Please return to the Emergency Department if symptoms worsen or any other concerns. Referrals: Romain Marquez MD [Primary Care Provider] - 1-2 days
[2023-08-23 11:44] VITALS: BP 124/71; PULSE 90; RESP 18; TEMP 98.3
--- NOTE | 2023-08-23 12:03 | XR ---
EXAMINATION TYPE: XR chest 2V DATE OF EXAM: 08/23/2023 COMPARISON: 02/13/2021 TECHNIQUE: PA and lateral views submitted. HISTORY: Cough FINDINGS: The lungs are clear and there is no pneumothorax, pleural effusion, or focal pneumonia. Heart size normal and no overt failure. Osseous structures demonstrate hypertrophic and degenerative changes of the spine. Diffuse osteopenia. Large hiatal hernia. IMPRESSION: 1. No acute process.
== END 2023-08-23 13:53 | disposition home or self-care (01) ==
LOC: EC 11:25
DX: U07.1 COVID-19 (principal); Z86.59 Personal history of other mental and behavioral disorders; Z88.2 Allergy status to sulfonamides; Z88.1 Allergy status to other antibiotic agents; Z87.891 Personal history of nicotine dependence
CPT/HCPCS: 71046; 87636; 99284

== ENCOUNTER 2023-12-22 07:19 | Day surgery (SDC) | payer OTHER ==
[2023-12-21 09:45] VITALS: BMI 29.5
--- NOTE | 2023-12-22 07:34 | P.GSHP ---
History of Present Illness H&P Date: 12/22/23 CHIEF COMPLAINT: GERD and colon screen HISTORY OF PRESENT ILLNESS: The patient is a 53-year-old female who presents with gastroesophageal reflux disease and need for colon screen. Upper and lower endoscopy were offered for further evaluation and management. PAST MEDICAL HISTORY: Please see list. PAST SURGICAL HISTORY: Please see list. MEDICATIONS: Please see list. ALLERGIES: Please see list. SOCIAL HISTORY: No illicit drug use FAMILY HISTORY: No reports of Crohn disease or ulcerative colitis. REVIEW OF ORGAN SYSTEMS: CONSTITUTIONAL: No reports of fevers or chills. GI: Denies any blood in stools or constipation. PHYSICAL EXAM: VITAL SIGNS: Stable GENERAL: Well-developed pleasant in no acute distress. HEENT: No scleral icterus. Extraocular movements grossly intact. Moist buccal mucosa. NECK: Supple without lymphadenopathy. CHEST: Unlabored respirations. Equal bilateral excursions. CARDIOVASCULAR: Regular rate and rhythm. Distal 2+ pulses. ABDOMEN: Soft, nondistended. MUSCULOSKELETAL: No clubbing, cyanosis, or edema. ASSESSMENT: 1. Gastroesophageal reflux disease 2. Colon screen. PLAN: 1. Recommend proceeding with an upper and lower endoscopy Past Medical History Past Medical History: No Reported History History of Any Multi-Drug Resistant Organisms: None Reported Past Surgical History: Appendectomy, Tubal Ligation Additional Past Surgical History / Comment(s): melanoma removed right buttock, melanoma removed form neck and left ear Past Anesthesia/Blood Transfusion Reactions: No Reported Reaction Additional Past Anesthesia/Blood Transfusion Reaction / Comment(s): no blood transfusion Smoking Status: Former smoker Medications and Allergies Home Medications Medication Instructions Recorded Confirmed Type Acetaminophen [Tylenol Extra 1,000 mg PO Q6H PRN 08/09/18 12/21/23 History Strength] Docusate [Colace] 100 mg PO DAILY PRN 08/09/18 12/21/23 History Chlorthalidone [Hygroton] 25 mg PO DAILY 02/13/21 12/21/23 History Cholecalciferol [Vitamin D3 (25 25 mcg PO DAILY 02/13/21 12/21/23 History Mcg = 1000 Iu)] Hydrocortisone Cream 1 applic TOPICAL BID PRN 02/13/21 12/21/23 History [Hydrocortisone 2.5% Cream] Penicillin V Potassium [Pen Vee K] 500 mg PO QID #40 tablet 10/05/22 02/27/24 Rx Allergies Allergy/AdvReac Type Severity Reaction Status Date / Time sulfamethoxazole Allergy Rash/Hives Verified 12/21/23 09:11 [From Bactrim] trimethoprim [From Bactrim] Allergy Rash/Hives Verified 12/21/23 09:11
[2023-12-22] MEDS: LACTATED RINGERS 1,000 ML IV SCH (08:05)
[2023-12-22 08:13] VITALS: TEMP 97.4
[2023-12-22] MEDS ORDERED: LIDOCAINE 1% INJ 10MG/ML (20 ML MDV) ONE (08:43)
[2023-12-22] MEDS ORDERED: PROPOFOL 10 MG/ML 20 ML VIAL IV ONE (08:43)
--- NOTE | 2023-12-22 09:27 | P.PCN ---
Date of Procedure: 12/22/23 Description of Procedure: PREOPERATIVE DIAGNOSIS: Gastroesophageal reflux disease. Dysphagia POSTOPERATIVE DIAGNOSIS: Gastroesophageal reflux disease. Gastritis. Diaphragmatic hiatal hernia OPERATION: Esophagogastroduodenoscopy with biopsies along esophagus, antrum and duodenum SURGEON: Britt Winn MD ANESTHESIA: MAC. INDICATIONS: The patient is a 53-year-old female who presents with reflux disease. Benefits and risks of the procedure were described. Informed consent was obtained. DESCRIPTION: The patient was brought into the endoscopy suite and laid in the left lateral decubitus position. An Olympus gastroscope was passed along the posterior oropharynx down to the distal esophagus where the squamocolumnar junction was encountered at 37 cm from the incisors. The stomach was entered and no bile reflux was found. Additional findings are listed below. Biopsies with cold forceps were obtained of the antrum. The first through third portion of the duodenum was examined. Retroflexion of the scope confirmed Hill grade 3 lower esophageal valve. The squamocolumnar junction demonstrated LA grade B erosive esophagitis. The stomach was desufflated. The patient tolerated the procedure well. FINDINGS: Squamocolumnar junction 37 cm from the incisors. Diaphragmatic hiatus at 40 cm. Hiatal hernia, 3 cm Hill grade 4 lower esophageal valve. LA grade B erosive esophagitis. Biopsies obtained Biopsies obtained of the duodenum. Chronic gastritis with biopsies obtained. RECOMMENDATIONS: Upper endoscopy as needed. Recommend esophagram
--- NOTE | 2023-12-22 09:47 | P.PCN ---
Date of Procedure: 12/22/23 Description of Procedure: PREOPERATIVE DIAGNOSIS: Family history colon cancer Colonoscopy screening. POSTOPERATIVE DIAGNOSIS: Colonoscopy screening. Diverticulosis, scattered. Arteriovenous malformation OPERATION: Colonoscopy to the cecum, ileocecal valve and appendiceal orifice. SURGEON: Britt Winn MD. ANESTHESIA: MAC. INDICATIONS: The patient is a 53-year-old female who presents for colonoscopy screening. Benefits and risks were described and informed consent was obtained. DESCRIPTION OF PROCEDURE: The patient had undergone GoLytely prep. The patient had been brought into the operating room and laid in the left lateral decubitus position. After adequate intravenous sedation, the rectum was examined with 2% lidocaine jelly. External hemorrhoids were encountered. The rectal tone was within normal limits. No lesions were palpated in the rectal vault. An Olympus colonoscope was advanced until the cecum, ileocecal valve and appendiceal orifice were clearly viewed. The prep was good. Scattered diverticulosis was encountered. No colonic polyps were found. No evidence of focal colitis was found. Retroflexion of the scope demonstrated grade 4 internal hemorrhoids without active bleeding or inflammation. The colon was desufflated. The patient had tolerated the procedure well. Withdrawal time was over 6 minutes. FINDINGS: Aronchick preparation quality scale 2 (1-5) Internal hemorrhoids, grade 4 External prolapsed hemorrhoids, grade 4 Arteriovenous malformations x 2 without bleeding, ascending colon, 2 mm No adenomatous polyps. Scattered diverticulosis No focal colitis. RECOMMENDATIONS: Lower endoscopy 5 years, 2028 Plan - Discharge Summary Discharge Rx Participant: No New Discharge Prescriptions: Continue Docusate [Colace] 100 mg PO DAILY PRN PRN Reason: Constipation Acetaminophen [Tylenol Extra Strength] 1,000 mg PO Q6H PRN PRN Reason: Fever And/ Or Pain Hydrocortisone Cream [Hydrocortisone 2.5% Cream] 1 applic TOPICAL BID PRN PRN Reason: Rash Cholecalciferol [Vitamin D3 (25 Mcg = 1000 Iu)] 25 mcg PO DAILY Chlorthalidone [Hygroton] 25 mg PO DAILY Discharge Medication List Acetaminophen [Tylenol Extra Strength] 1,000 mg PO Q6H PRN 08/09/18 [History] Docusate [Colace] 100 mg PO DAILY PRN 08/09/18 [History] Chlorthalidone [Hygroton] 25 mg PO DAILY 02/13/21 [History] Cholecalciferol [Vitamin D3 (25 Mcg = 1000 Iu)] 25 mcg PO DAILY 02/13/21 [History] Hydrocortisone Cream [Hydrocortisone 2.5% Cream] 1 applic TOPICAL BID PRN 02/13/21 [History] Follow up Appointment(s)/Referral(s): Britt Winn MD [STAFF PHYSICIAN] - 01/18/24 9:30 am Patient Instructions/Handouts: Hiatal Hernia (DC) Activity/Diet/Wound Care/Special Instructions: Repeat colonoscopy in 5 years, 2028 Discharge Disposition: HOME SELF-CARE
[2023-12-22 09:55] VITALS: BP 121/77; PULSE 71; RESP 18
== END 2023-12-22 10:42 | disposition home or self-care (01) ==
LOC: ORWHC2ENDO 07:19
PROVIDERS: ATTEND Surgery Plastic and Reconstructive Surgery
DX: Z12.11 Encounter for screening for malignant neoplasm of colon (principal); K29.50 Unspecified chronic gastritis without bleeding; K21.00 Gastro-esophageal reflux disease with esophagitis, without bleeding; K44.9 Diaphragmatic hernia without obstruction or gangrene; Z87.891 Personal history of nicotine dependence; Z88.1 Allergy status to other antibiotic agents; Z88.2 Allergy status to sulfonamides; Z90.49 Acquired absence of other specified parts of digestive tract; Z80.0 Family history of malignant neoplasm of digestive organs
CPT/HCPCS: 88305; 43239; J2001; J2704; G0105; 45378

== ENCOUNTER 2025-01-19 13:06 | Emergency (ER) | payer OTHER ==
--- NOTE | 2025-01-19 13:14 | ED ---
Female Urogenital HPI - General Source: patient, RN notes reviewed Mode of arrival: ambulatory Limitations: no limitations <Xochilt Hurt - Last Filed: 01/19/25 13:13> <Sheba Gonzalez - Last Filed: 01/19/25 14:58> - General Stated complaint: Back Pain Time Seen by Provider: 01/19/25 13:13 - History of Present Illness Initial comments: Quick note: 54-year-old female presented the ER for evaluation of dysuria. Patient states last night she started to have dysuria, lower abdominal pain and back pain. No fevers or chills. Patient has tried [id number] medications without relief. No diarrhea or constipation. (Xochilt Hurt) 54-year-old female presents emergency department chief complaint of dysuria. Sameer singh states that symptom started yesterday evening and has been experiencing increased urinary frequency and urgency with decreased output. She endorses lower abdominal/pelvic pain and mild back pain. Denies fevers, chills, nausea, vomiting. States she is attempted to take [id number] bladder spasm medication with no relief in symptoms. (Sheba Gonzalez) - Related Data Home Medications Medication Instructions Recorded Confirmed Acetaminophen [Tylenol Extra 1,000 mg PO Q6H PRN 08/09/18 12/22/23 Strength] Docusate [Colace] 100 mg PO DAILY PRN 08/09/18 12/22/23 Chlorthalidone [Hygroton] 25 mg PO DAILY 02/13/21 12/22/23 Cholecalciferol [Vitamin D3 (25 25 mcg PO DAILY 02/13/21 12/22/23 Mcg = 1000 Iu)] Hydrocortisone Cream 1 applic TOPICAL BID PRN 02/13/21 12/22/23 [Hydrocortisone 2.5% Cream] Previous Rx's Medication Instructions Recorded Cephalexin [Keflex] 500 mg PO Q6HR #40 cap 01/19/25 Allergies Allergy/AdvReac Type Severity Reaction Status Date / Time sulfamethoxazole Allergy Rash/Hives Verified 01/19/25 13:46 [From Bactrim] trimethoprim [From Bactrim] Allergy Rash/Hives Verified 01/19/25 13:46 Review of Systems ROS Other: All systems not noted in ROS Statement are negative. <Xochilt Hurt - Last Filed: 01/19/25 13:13> ROS Other: All systems not noted in ROS Statement are negative. <Sheba Gonzalez - Last Filed: 01/19/25 14:58> ROS Statement: Those systems with pertinent positive or pertinent negative responses have been documented in the HPI. Past Medical History Past Medical History: No Reported History History of Any Multi-Drug Resistant Organisms: None Reported Past Surgical History: Appendectomy, Tubal Ligation Additional Past Surgical History / Comment(s): melanoma removed right buttock, melanoma removed form neck and left ear Past Anesthesia/Blood Transfusion Reactions: No Reported Reaction Additional Past Anesthesia/Blood Transfusion Reaction / Comment(s): no blood transfusion Smoking Status: Former smoker <Xochilt Hurt - Last Filed: 01/19/25 13:13> General Exam <Xochilt Hurt - Last Filed: 01/19/25 13:13> General appearance: alert, in no apparent distress Neck exam: Present: normal inspection. Absent: tenderness, meningismus, lymphadenopathy Respiratory exam: Present: normal lung sounds bilaterally. Absent: respiratory distress, wheezes, rales, rhonchi, stridor Cardiovascular Exam: Present: regular rate, normal rhythm, normal heart sounds. Absent: systolic murmur, diastolic murmur, rubs, gallop, clicks GI/Abdominal exam: Present: soft, tenderness (suprapubic), normal bowel sounds. Absent: distended, guarding, rebound, rigid Extremities exam: Present: normal inspection, full ROM, normal capillary refill. Absent: tenderness, pedal edema, joint swelling, calf tenderness Back exam: Present: normal inspection. Absent: CVA tenderness (R), CVA tenderness (L) Skin exam: Present: warm, dry, intact, normal color. Absent: rash <Sheba Gonzalez - Last Filed: 01/19/25 14:58> - General Exam Comments Initial Comments: Visual Physical Exam Vital signs reviewed General: Well-appearing, nontoxic, no acute distress. Head: Normocephalic, atraumatic Eyes: PERRLA, EOMI ENT: Airway patent Chest: Nonlabored breathing Skin: No visual rash, normal skin tone Neuro: Alert and oriented 3 Musculoskeletal: No gross abnormalities (Xochilt Hurt) Course Vital Signs 01/19/25 13:43 Temperature 98.2 F Pulse Rate 68 Respiratory 17 Rate Blood Pressure 142/80 O2 Sat by Pulse 98 Oximetry Medical Decision Making <Xochilt Hurt - Last Filed: 01/19/25 13:13> - Lab Data Result diagrams: 01/19/25 14:02 01/19/25 14:02 <BjisaacSheba - Last Filed: 01/19/25 14:58> - Medical Decision Making I performed the quick note portion of this chart. Electronically signed by Xochilt Hurt PA-C (Xochilt Hurt) Was pt. sent in by a medical professional or institution ([facility], [facility], urgent care, hospital, or shelter...) When possible be specific @ -No Did you speak to anyone other than the patient for history (EMS, parent, family, police, friend...)? What history was obtained from this source @ -No Did you review nursing and triage notes (agree or disagree)? Why? @ -I reviewed and agree with nursing and triage notes Were old charts reviewed (outside hosp., previous admission, EMS record, old EKG, old radiological studies, urgent care reports/EKG's, shelter records)? Report findings @ -No old charts were reviewed Differential Diagnosis (chest pain, altered mental status, abdominal pain women, abdominal pain men, vaginal bleeding, weakness, fever, dyspnea, syncope, headache, dizziness, GI bleed, back pain, seizure, CVA, palpatations, mental health, musculoskeletal)? @ -Differential Abdominal Pain Women: Appendicitis, Cholecystitis, diverticulosis, ischemic bowel, pancreatitis, hepatitis, UTI, gastroenteritis, AAA, incarcerated hernia, bowel obstruction, constipation, inflammatory bowel, hepatitis, peptic ulcer disease, splenic infarction, perforated viscus, vulvitis, ovarian torsion, PID, kidney stone, placenta abruption, this is not meant to be an all-inclusive list EKG interpreted by me (3pts min.). @ -None X-rays interpreted by me (1pt min.). @ -None done CT interpreted by me (1pt min.). @ -None done U/S interpreted by me (1pt. min.). @ -None done What testing was considered but not performed or refused? (CT, X-rays, U/S, labs)? Why? @ -None What meds were considered but not given or refused? Why? @ -None Did you discuss the management of the patient with other professionals (professionals i.e. , PA, [facility], lab, RT, psych nurse, social security benefits interviewer, preparation supervisor canning, teacher, armed security officer, patient case manager)? Give summary @ -No Was smoking cessation discussed for >3mins.? @ -No Was critical care preformed (if so, how long)? @ -No Were there social determinants of health that impacted care today? How? (Homelessness, low income, unemployed, alcoholism, drug addiction, transportation, low edu. Level, literacy, decrease access to med. care, intermediate, rehab)? @ -No Was there de-escalation of care discussed even if they declined (Discuss DNR or withdrawal of care, Hospice)? DNR status @ -No What co-morbidities impacted this encounter? (DM, HTN, Smoking, COPD, CAD, Cancer, CVA, ARF, Chemo, Hep., AIDS, mental health diagnosis, sleep apnea, morbid obesity)? @ -None Was patient admitted / discharged? Hospital course, mention meds given and route, prescriptions, significant lab abnormalities, going to OR and other pertinent info. @ -[Discharge. 54-year-old presenting with dysuria. Patient was originally evaluated in the emergency department waiting room as a quick note for laboratory testing was ordered. On my evaluation the patient she is resting comfortably no signs acute distress. Noted mild suprapubic tenderness to palpation. No CVA tenderness bilaterally. Is provided with dose of Motrin. Urinalysis remarkable for small blood with moderate leukocyte Estrace, white cells and rare bacteria. Patient will be treated for symptomatic urinary tract infection with initial dose of Rocephin and outpatient prescription for Keflex. Urine is sent for culture. Case discussed with Dr. Harper Undiagnosed new problem with uncertain prognosis? @ -No Drug Therapy requiring intensive monitoring for toxicity (Heparin, Nitro, Insulin, Cardizem)? @ -No Were any procedures done? @ -No Diagnosis/symptom? @ -UTI Acute, or Chronic, or Acute on Chronic? @ -acute Uncomplicated (without systemic symptoms) or Complicated (systemic symptoms)? @ -uncomplicated Side effects of treatment? @ -No Exacerbation, Progression, or Severe Exacerbation? @ -No Poses a threat to life or bodily function? How? (Chest pain, [place], [place], pneumonia, PE, COPD, DKA, ARF, appy, cholecystitis, CVA, Diverticulitis, Homicidal, Suicidal, threat to staff... and all critical care pts) @ -No (Sheba Gonzalez) - Lab Data Lab Results 01/19/25 01/19/25 01/19/25 Range/Units 13:45 14:02 14:02 WBC 6.6 (3.8-10.6) k/uL RBC 4.85 (3.80-5.40) m/uL Hgb 14.0 (11.4-16.0) gm/dL Hct 43.7 (34.0-46.0) % MCV 90.2 (80.0-100.0) fL MCH 28.9 (25.0-35.0) pg MCHC 32.1 (31.0-37.0) g/dL RDW 14.2 (11.5-15.5) % Plt Count 319 (150-450) k/uL MPV 7.1 Neutrophils % 76 % Lymphocytes % 18 % Monocytes % 2 % Eosinophils % 2 % Basophils % 1 % Neutrophils # 5.1 (1.3-7.7) k/uL Lymphocytes # 1.2 (1.0-4.8) k/uL Monocytes # 0.2 (0-1.0) k/uL Eosinophils # 0.1 (0-0.7) k/uL Basophils # 0.0 (0-0.2) k/uL Sodium 139 (137-145) mmol/L Potassium 4.5 (3.5-5.1) mmol/L Chloride 103 (98-107) mmol/L Carbon Dioxide 27 (22-30) mmol/L Anion Gap 9 mmol/L BUN 13 (7-17) mg/dL Creatinine 0.86 (0.52-1.04) mg/dL Est GFR (CKD-EPI)AfAm 88 (>60 ml/min/1.73 sqM) Est GFR (CKD-EPI)NonAf 76 (>60 ml/min/1.73 sqM) Glucose 109 H (74-99) mg/dL Plasma Lactic Acid Ryan (0.7-2.0) mmol/L Calcium 10.1 (8.4-10.2) mg/dL Total Bilirubin 0.5 (0.2-1.3) mg/dL AST 19 (14-36) U/L ALT 19 (4-34) U/L Alkaline Phosphatase 76 (38-126) U/L Total Protein 8.0 (6.3-8.2) g/dL Albumin 4.9 (3.5-5.0) g/dL Urine Color Colorless Urine Appearance Clear (Clear) Urine pH 6.5 (5.0-8.0) Ur Specific [place] 1.009 (1.001-1.035) Urine Protein Negative (Negative) Urine Glucose (UA) Negative (Negative) Urine Ketones Negative (Negative) Urine Blood Small H (Negative) Urine Nitrite Negative (Negative) Urine Bilirubin Negative (Negative) Urine Urobilinogen <2.0 (<2.0) mg/dL Ur Leukocyte Esterase Moderate H (Negative) Urine RBC 11 H (0-5) /hpf Urine WBC 15 H (0-5) /hpf Ur Squamous Epith Cells 1 (0-4) /hpf Amorphous Sediment Rare H (None) /hpf Urine Bacteria Rare H (None) /hpf 01/19/25 Range/Units 14:02 WBC (3.8-10.6) k/uL RBC (3.80-5.40) m/uL Hgb (11.4-16.0) gm/dL Hct (34.0-46.0) % MCV (80.0-100.0) fL MCH (25.0-35.0) pg MCHC (31.0-37.0) g/dL RDW (11.5-15.5) % Plt Count (150-450) k/uL MPV Neutrophils % % Lymphocytes % % Monocytes % % Eosinophils % % Basophils % % Neutrophils # (1.3-7.7) k/uL Lymphocytes # (1.0-4.8) k/uL Monocytes # (0-1.0) k/uL Eosinophils # (0-0.7) k/uL Basophils # (0-0.2) k/uL Sodium (137-145) mmol/L Potassium (3.5-5.1) mmol/L Chloride (98-107) mmol/L Carbon Dioxide (22-30) mmol/L Anion Gap mmol/L BUN (7-17) mg/dL Creatinine (0.52-1.04) mg/dL Est GFR (CKD-EPI)AfAm (>60 ml/min/1.73 sqM) Est GFR (CKD-EPI)NonAf (>60 ml/min/1.73 sqM) Glucose (74-99) mg/dL Plasma Lactic Acid Ryan 0.8 (0.7-2.0) mmol/L Calcium (8.4-10.2) mg/dL Total Bilirubin (0.2-1.3) mg/dL AST (14-36) U/L ALT (4-34) U/L Alkaline Phosphatase (38-126) U/L Total Protein (6.3-8.2) g/dL Albumin (3.5-5.0) g/dL Urine Color Urine Appearance (Clear) Urine pH (5.0-8.0) Ur Specific [place] (1.001-1.035) Urine Protein (Negative) Urine Glucose (UA) (Negative) Urine Ketones (Negative) Urine Blood (Negative) Urine Nitrite (Negative) Urine Bilirubin (Negative) Urine Urobilinogen (<2.0) mg/dL Ur Leukocyte Esterase (Negative) Urine RBC (0-5) /hpf Urine WBC (0-5) /hpf Ur Squamous Epith Cells (0-4) /hpf Amorphous Sediment (None) /hpf Urine Bacteria (None) /hpf Disposition <Xochilt Hurt - Last Filed: 01/19/25 13:13> Is patient prescribed a controlled substance at d/c from ED?: No Time of Disposition: 14:41 <Sheba Gonzalez - Last Filed: 01/19/25 14:58> Clinical Impression: UTI (urinary tract infection) Disposition: HOME SELF-CARE Condition: Good Instructions (If sedation given, give patient instructions): Urinary Tract Infection in Women (ED) Additional Instructions: Please return to the Emergency Department if symptoms worsen or any other concerns. Prescriptions: Cephalexin [Keflex] 500 mg PO Q6HR #40 cap Referrals: Romain Marquez MD [Primary Care Provider] - 1-2 days
[2025-01-19] MEDS: IBUPROFEN 600 MG TAB PO STA (14:01)
[2025-01-19 14:03] LABS: Amorphous Sediment,Urine Rare /hpf; Appearance,Urine Clear (Clear); Bacteria,Urine Rare /hpf; Bilirubin,Urine Negative (Negative); Blood,Urine Small (Negative); Color,Urine Colorless; Glucose,Urine (UA) Negative (Negative); Ketones,Urine Negative (Negative); Leukocyte Esterase,Urine Moderate (Negative); Nitrite,Urine Negative (Negative); PH, Urine 6.5 (5.0-8.0); Protein,Urine Negative (Negative); RBC,Urine 11 /hpf (0-5); Specific Gravity,Urine 1.009 (1.001-1.035); Squamous Epithelial Cell,Urine 1 /hpf (0-4); Urobilinogen,Urine <2.0 mg/dL (<2.0); WBC,Urine 15 /hpf (0-5)
[2025-01-19 14:16] LABS: Basophils % (A) 1 %; Eosinophils # (A) 0.1 k/uL (0-0.7); Eosinophils % (A) 2 %; HCT 43.7 % (34.0-46.0); Lymphocytes # (A) 1.2 k/uL (1.0-4.8); Lymphocytes % (A) 18 %; MCH 28.9 pg (25.0-35.0); MCHC 32.1 g/dL (31.0-37.0); MCV 90.2 fL (80.0-100.0); Mean Platelet Volume 7.1; Monocytes # (A) 0.2 k/uL (0-1.0); Monocytes % (A) 2 %; Neutrophils # (A) 5.1 k/uL (1.3-7.7); Neutrophils % (A) 76 %; Platelet Count 319 k/uL (150-450); RBC 4.85 m/uL (3.80-5.40); RDW 14.2 % (11.5-15.5); WBC 6.6 k/uL (3.8-10.6)
[2025-01-19 14:32] LABS: ALT 19 U/L (4-34); AST 19 U/L (14-36); African American GFR (CKD) 88 (>60 ml/min/1.73 sqM); Albumin 4.9 g/dL (3.5-5.0); Alkaline Phosphatase 76 U/L (38-126); Anion Gap 9 mmol/L; Blood Urea Nitrogen 13 mg/dL (7-17); Calcium 10.1 mg/dL (8.4-10.2); Carbon Dioxide 27 mmol/L (22-30); Chloride 103 mmol/L (98-107); Glucose 109 mg/dL (74-99); Non-African American GFR(CKD) 76 (>60 ml/min/1.73 sqM); Potassium 4.5 mmol/L (3.5-5.1); Sodium 139 mmol/L (137-145); Total Bilirubin 0.5 mg/dL (0.2-1.3)
[2025-01-19] MEDS: cefTRIAXone IN SWFI 1,000 MG/10 ML SYRINGE IVP STA (14:49)
[2025-01-19 15:02] VITALS: BP 123/84; PULSE 69; RESP 16; TEMP 98.3
== END 2025-01-19 15:01 | disposition home or self-care (01) ==
LOC: EC 13:06
DX: N39.0 Urinary tract infection, site not specified (principal); Z87.891 Personal history of nicotine dependence; Z88.2 Allergy status to sulfonamides
CPT/HCPCS: 36415; 80053; 83605; 85025; 81001; 87086; 99283; 96374; J0696

== ENCOUNTER 2025-02-22 12:20 | Observation (INO) | payer OTHER ==
[2025-02-22 12:46] LABS: Basophils # (A) 0.02 10*3/uL (0.00-0.10); Basophils % (A) 0.4 %; Eosinophils % (A) 1.8 %; HCT 40.4 % (37.2-46.3); HGB 13.6 g/dL (12.0-15.0); Lymphocytes # (A) 1.31 10*3/uL (0.90-5.00); Lymphocytes % (A) 23.6 %; MCH 30.6 pg (27.0-32.0); MCHC 33.7 g/dL (32.0-37.0); MCV 90.8 fL (80.0-97.0); Mean Platelet Volume 9.6 fL (9.5-12.2); Monocytes # (A) 0.22 10*3/uL (0.20-1.00); Neutrophils # (A) 3.85 10*3/uL (1.80-7.70); Neutrophils % (A) 69.5 %; Platelet Count 278 10*3/uL (140-440); RBC 4.45 10*6/uL (4.10-5.20); RDW 14.5 % (11.5-14.5); WBC 5.54 10*3/uL (4.50-10.00)
[2025-02-22 12:56] LABS: ALT 19 U/L (4-34); AST 19 U/L (14-36); African American GFR (CKD) >90 (>60 ml/min/1.73 sqM); Albumin 4.8 g/dL (3.5-5.0); Alkaline Phosphatase 66 U/L (38-126); Anion Gap 14 mmol/L; Blood Urea Nitrogen 13 mg/dL (7-17); Calcium 10.1 mg/dL (8.4-10.2); Carbon Dioxide 25 mmol/L (22-30); Chloride 101 mmol/L (98-107); Glucose 147 mg/dL (74-99); Magnesium 1.9 mg/dL (1.6-2.3); Non-African American GFR(CKD) 81 (>60 ml/min/1.73 sqM); Sodium 140 mmol/L (137-145); Total Bilirubin 0.5 mg/dL (0.2-1.3); Total Protein 7.8 g/dL (6.3-8.2)
--- NOTE | 2025-02-22 13:05 | XR ---
EXAMINATION TYPE: XR chest 2V DATE OF EXAM: 02/22/2025 1:01 PM COMPARISON: 08/23/2023 CLINICAL INDICATION: Female, 55 years old with history of Chest Pain: Shortness of breath TECHNIQUE: XR chest 2V views of the chest are obtained. FINDINGS: Scattered senescent parenchymal changes noted. Hyperinflation compatible with COPD. No evidence for infiltrate. No evidence for atelectasis. Fixed hiatal hernia noted Heart size is stable. Mediastinal structures are stable and grossly unremarkable. No evidence for hilar prominence. Degenerative changes dorsal spine. IMPRESSION: 1. No evidence for acute pulmonary disease. [facility], , 02/22/2025 1:03 PM
[2025-02-22 13:08] LABS: INR 0.9 (<1.2); Partial Thromboplastin Time 24.3 sec (22.0-30.0); Prothrombin Time 10.6 sec (10.0-12.5)
[2025-02-22] MEDS ORDERED: NITROGLYCERIN SL TABS 0.4 MG TAB SUBLINGUAL PRN (14:37)
--- NOTE | 2025-02-22 14:37 | ED ---
General Adult HPI - General Chief complaint: Chest Pain Stated complaint: chest pain Time Seen by Provider: 02/22/25 13:48 Source: patient, RN notes reviewed Mode of arrival: ambulatory Limitations: no limitations - History of Present Illness Initial comments: Patient is a 55-year-old female present to the emergency department with concerns with chest discomfort. Onset of symptoms was 3 days ago. Symptoms have been intermittent. Symptoms do worsen with exertion. No radiation. No associated dyspnea, nausea, or diaphoresis. Currently symptoms are very mild. Discomfort is somewhat sharp. Patient does have history of similar symptoms previously with negative workup - Related Data Home Medications Medication Instructions Recorded Confirmed Acetaminophen [Tylenol Extra 1,000 mg PO Q6H PRN 08/09/18 12/22/23 Strength] Docusate [Colace] 100 mg PO DAILY PRN 08/09/18 12/22/23 Chlorthalidone [Hygroton] 25 mg PO DAILY 02/13/21 12/22/23 Cholecalciferol [Vitamin D3 (25 25 mcg PO DAILY 02/13/21 12/22/23 Mcg = 1000 Iu)] Hydrocortisone Cream 1 applic TOPICAL BID PRN 02/13/21 12/22/23 [Hydrocortisone 2.5% Cream] Previous Rx's Medication Instructions Recorded Cephalexin [Keflex] 500 mg PO Q6HR #40 cap 01/19/25 Allergies Allergy/AdvReac Type Severity Reaction Status Date / Time sulfamethoxazole Allergy Rash/Hives Verified 02/22/25 12:27 [From Bactrim] trimethoprim [From Bactrim] Allergy Rash/Hives Verified 02/22/25 12:27 Review of Systems ROS Statement: Those systems with pertinent positive or pertinent negative responses have been documented in the HPI. ROS Other: All systems not noted in ROS Statement are negative. Constitutional: Denies: fever Eyes: Denies: eye pain ENT: Denies: ear pain Respiratory: Denies: cough, dyspnea Cardiovascular: Reports: as per HPI, chest pain Gastrointestinal: Denies: abdominal pain Musculoskeletal: Denies: back pain Past Medical History Past Medical History: No Reported History History of Any Multi-Drug Resistant Organisms: None Reported Past Surgical History: Appendectomy, Tubal Ligation Additional Past Surgical History / Comment(s): melanoma removed right buttock, melanoma removed form neck and left ear Past Anesthesia/Blood Transfusion Reactions: No Reported Reaction Additional Past Anesthesia/Blood Transfusion Reaction / Comment(s): no blood transfusion Past Psychological History: Depression Smoking Status: Former smoker Past Alcohol Use History: None Reported Past Drug Use History: None Reported General Exam Limitations: no limitations General appearance: alert, in no apparent distress Head exam: Present: normocephalic Eye exam: Present: normal appearance Neck exam: Present: normal inspection Respiratory exam: Present: normal lung sounds bilaterally. Absent: chest wall t enderness Cardiovascular Exam: Present: regular rate, normal rhythm, normal heart sounds Expanded Peripheral pulses: 2+: Radial (R), Radial (L), Posterior Tibialis (R), Posterior Tibialis (L) GI/Abdominal exam: Present: soft. Absent: tenderness Extremities exam: Present: normal inspection. Absent: pedal edema, calf tenderness Neurological exam: Present: alert Psychiatric exam: Present: normal affect, normal mood Skin exam: Present: normal color Course Vital Signs 02/22/25 02/22/25 12:24 14:00 Temperature 98.2 F Pulse Rate 94 93 Respiratory 18 19 Rate Blood Pressure 140/80 147/74 O2 Sat by Pulse 99 99 Oximetry EKG Findings - EKG Results: EKG: interpreted by ERMD, sinus rhythm, normal axis, normal QRS, normal ST/T Medical Decision Making - Medical Decision Making Was pt. sent in by a medical professional or institution ([facility], [facility], urgent care, hospital, or assisted...) When possible be specific @ -No Did you speak to anyone other than the patient for history (EMS, parent, family, police, friend...)? What history was obtained from this source @ -No Did you review nursing and triage notes (agree or disagree)? Why? @ -I reviewed and agree with nursing and triage notes Were old charts reviewed (outside hosp., previous admission, EMS record, old EKG, old radiological studies, urgent care reports/EKG's, assisted records)? Report findings @ -No old charts were reviewed Differential Diagnosis (chest pain, altered mental status, abdominal pain women, abdominal pain men, vaginal bleeding, weakness, fever, dyspnea, syncope, headache, dizziness, GI bleed, back pain, seizure, CVA, palpatations, mental health, musculoskeletal)? @ -Differential Chest Pain: Stable Angina, Unstable Angina, STEMI, NSTEMI Aortic Dissection, Pneumothorax, Musculoskeletal, Esophageal Spasm GERD, Cholecystitis, Pancreatitis, Zoster, this is not meant to be an all-inclusive list. EKG interpreted by me (3pts min.). @ -As above X-rays interpreted by me (1pt min.). @ -Chest x-ray shows no acute process CT interpreted by me (1pt min.). @ -None done U/S interpreted by me (1pt. min.). @ -None done What testing was considered but not performed or refused? (CT, X-rays, U/S, labs)? Why? @ -None What meds were considered but not given or refused? Why? @ -None Did you discuss the management of the patient with other professionals (professionals i.e. , PA, [facility], lab, RT, psych nurse, social worker clinical, screwhead polisher, teacher, planned giving officer, oil field caser)? Give summary @ -Case with discussed with Dr. Marquez who will admit his patient Was smoking cessation discussed for >3mins.? @ -No Was critical care preformed (if so, how long)? @ -No Were there social determinants of health that impacted care today? How? (Homelessness, low income, unemployed, alcoholism, drug addiction, transportation, low edu. Level, literacy, decrease access to med. care, [facility], rehab)? @ -No Was there de-escalation of care discussed even if they declined (Discuss DNR or withdrawal of care, Hospice)? DNR status @ -No What co-morbidities impacted this encounter? (DM, HTN, Smoking, COPD, CAD, Cancer, CVA, ARF, Chemo, Hep., AIDS, mental health diagnosis, sleep apnea, morbid obesity)? @ -None Was patient admitted / discharged? Hospital course, mention meds given and route, prescriptions, significant lab abnormalities, going to OR and other pertinent info. @ -Patient presents with chest discomfort. Initial evaluation unremarkable. Patient will be admitted with cardiac consult. Admission orders written. Patient updated Undiagnosed new problem with uncertain prognosis? @ -No Drug Therapy requiring intensive monitoring for toxicity (Heparin, Nitro, Insulin, Cardizem)? @ -No Were any procedures done? @ -No Diagnosis/symptom? @ -Chest pain Acute, or Chronic, or Acute on Chronic? @ -Acute Uncomplicated (without systemic symptoms) or Complicated (systemic symptoms)? @ -Default Side effects of treatment? @ -No Exacerbation, Progression, or Severe Exacerbation? @ -No Poses a threat to life or bodily function? How? (Chest pain, [place], [place], pneumonia, PE, COPD, DKA, ARF, appy, cholecystitis, CVA, Diverticulitis, Homicidal, Suicidal, threat to staff... and all critical care pts) @ -Threat to cardiac function - Lab Data Result diagrams: 02/22/25 12:36 02/22/25 12:35 Lab Results 02/22/25 02/22/25 02/22/25 Range/Units 12:35 12:35 12:36 WBC 5.54 (4.50-10.00) 10*3/uL RBC 4.45 (4.10-5.20) 10*6/uL Hgb 13.6 (12.0-15.0) g/dL Hct 40.4 (37.2-46.3) % MCV 90.8 (80.0-97.0) fL MCH 30.6 (27.0-32.0) pg MCHC 33.7 (32.0-37.0) g/dL Plt Count 278 (140-440) 10*3/uL MPV 9.6 (9.5-12.2) fL Immature Gran % (Auto) 0.7 % Neutrophils % 69.5 % Lymphocytes % 23.6 % Monocytes % 4.0 % Eosinophils % 1.8 % Basophils % 0.4 % Immature Gran # 0.04 (0.00-0.04) 10*3/uL Neutrophils # 3.85 (1.80-7.70) 10*3/uL Lymphocytes # 1.31 (0.90-5.00) 10*3/uL Monocytes # 0.22 (0.20-1.00) 10*3/uL Eosinophils # 0.10 (0.04-0.35) 10*3/uL Basophils # 0.02 (0.00-0.10) 10*3/uL PT (10.0-12.5) sec INR (<1.2) APTT (22.0-30.0) sec Sodium 140 (137-145) mmol/L Potassium 4.0 (3.5-5.1) mmol/L Chloride 101 (98-107) mmol/L Carbon Dioxide 25 (22-30) mmol/L Anion Gap 14 mmol/L BUN 13 (7-17) mg/dL Creatinine 0.81 (0.52-1.04) mg/dL Est GFR (CKD-EPI)AfAm >90 (>60 ml/min/1.73 sqM) Est GFR (CKD-EPI)NonAf 81 (>60 ml/min/1.73 sqM) Glucose 147 H (74-99) mg/dL Calcium 10.1 (8.4-10.2) mg/dL Magnesium 1.9 (1.6-2.3) mg/dL Total Bilirubin 0.5 (0.2-1.3) mg/dL AST 19 (14-36) U/L ALT 19 (4-34) U/L Alkaline Phosphatase 66 (38-126) U/L Troponin I <0.012 (0.000-0.034) ng/mL Total Protein 7.8 (6.3-8.2) g/dL Albumin 4.8 (3.5-5.0) g/dL 02/22/25 Range/Units 12:36 WBC (4.50-10.00) 10*3/uL RBC (4.10-5.20) 10*6/uL Hgb (12.0-15.0) g/dL Hct (37.2-46.3) % MCV (80.0-97.0) fL MCH (27.0-32.0) pg MCHC (32.0-37.0) g/dL Plt Count (140-440) 10*3/uL MPV (9.5-12.2) fL Immature Gran % (Auto) % Neutrophils % % Lymphocytes % % Monocytes % % Eosinophils % % Basophils % % Immature Gran # (0.00-0.04) 10*3/uL Neutrophils # (1.80-7.70) 10*3/uL Lymphocytes # (0.90-5.00) 10*3/uL Monocytes # (0.20-1.00) 10*3/uL Eosinophils # (0.04-0.35) 10*3/uL Basophils # (0.00-0.10) 10*3/uL PT 10.6 (10.0-12.5) sec INR 0.9 (<1.2) APTT 24.3 (22.0-30.0) sec Sodium (137-145) mmol/L Potassium (3.5-5.1) mmol/L Chloride (98-107) mmol/L Carbon Dioxide (22-30) mmol/L Anion Gap mmol/L BUN (7-17) mg/dL Creatinine (0.52-1.04) mg/dL Est GFR (CKD-EPI)AfAm (>60 ml/min/1.73 sqM) Est GFR (CKD-EPI)NonAf (>60 ml/min/1.73 sqM) Glucose (74-99) mg/dL Calcium (8.4-10.2) mg/dL Magnesium (1.6-2.3) mg/dL Total Bilirubin (0.2-1.3) mg/dL AST (14-36) U/L ALT (4-34) U/L Alkaline Phosphatase (38-126) U/L Troponin I (0.000-0.034) ng/mL Total Protein (6.3-8.2) g/dL Albumin (3.5-5.0) g/dL Disposition Clinical Impression: Chest pain Disposition: ADMITTED IP TO THIS HOSP Is patient prescribed a controlled substance at d/c from ED?: No Referrals: Romain Marquez MD [Primary Care Provider] - 1-2 days Time of Disposition: 14:37
[2025-02-22] MEDS: NITROGLYCERIN OINT 1 INCH/GM PACKET TOPICAL SCH (14:47)
[2025-02-22] MEDS: ASPIRIN 81 MG PO STA (14:47)
[2025-02-23] MEDS: ASPIRIN 325 MG TAB PO SCH (08:24)
[2025-02-23 10:28] LABS: Chol/HDL Ratio 3.41 Ratio; LDL Cholesterol,Calculated 90.6 mg/dL (0.0-131.0); VLDL Calculation 14.68 mg/dL (5.00-40.00)
--- NOTE | 2025-02-23 12:06 | P.CRDCN ---
History of Present Illness Consult date: 02/23/25 Consult reason: chest pain History of present illness: This is a 55-year-old female with past medical history of hypertension, GERD. We have been asked to evaluate the patient for chest pain. 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 Patient states she developed left-sided sharp type chest pain that has been going on for the past 3 days when she is walking. She also complains of numbness to the left arm. She denies shortness of breath no sweating and no nausea. She states the pain is sharp and she has to sit down and it would go away when she relaxes. She denies any lifting or activity that would have injured her chest. She does have tenderness to the left chest wall. She denies smoking. She does have family history of father with a myocardial infarction at age 64. Blood pressure 125/69, heart rate 83, pulse ox 95% on room air. -EKG: Sinus rhythm with no acute ST changes. -Chest x-ray: No acute process. -Laboratory studies: CBC INR, CMP unremarkable except for glucose of 147. Troponin negative x 3 draws. Magnesium 1.9. -Home cardiac medications: None Review Of Systems: At the time of my exam: CONSTITUTIONAL: Denies fever or chills. HEENT: Denies blurred vision, vision changes, or eye pain. Denies hemoptysis CARDIOVASCULAR: Denies chest pain. Denies orthopnea. Denies PND. Denies palpitations RESPIRATORY: Denies shortness of breath. GASTROINTESTINAL: Denies abdominal pain. Denies nausea or vomiting. HEMATOLOGIC: Denies bleeding disorders. GENITOURINARY: Denies any blood in urine. SKIN: Denies puritis. Denies rash. Physical examination: Gen: This is a 55-year-old female in no acute distress VS: reviewed HEENT: Head is atraumatic, normocephalic. Pupils equal, round. Sclerae is anicteric. NECK: Supple. No JVD. LUNGS: Clear to auscultation. No wheezes or rhonchi. No intercostal retractions. HEART: Regular rate and rhythm. No murmur. ABDOMEN: Soft No tenderness. EXTREMITIES: No pedal edema. No calf tenderness. NEUROLOGICAL: Patient is awake, alert and oriented x3. Assessment: Atypical chest pain, acute coronary syndrome ruled out Plan: Discontinue Nitropaste Obtain stress echocardiogram Obtain 2-D echocardiogram and Doppler study to assess cardiac structure and function If above testing is unremarkable, patient is cleared for discharge from cardiology perspective. Thank you kindly for this consultation. Nurse practitioner note has been reviewed, I agree with documented findings and plan of care. Patient was seen and examined. Past Medical History Past Medical History: No Reported History History of Any Multi-Drug Resistant Organisms: None Reported Past Surgical History: Appendectomy, Tubal Ligation Additional Past Surgical History / Comment(s): melanoma removed right buttock, melanoma removed form neck and left ear Past Anesthesia/Blood Transfusion Reactions: No Reported Reaction Additional Past Anesthesia/Blood Transfusion Reaction / Comment(s): no blood transfusion Past Psychological History: Depression Smoking Status: Former smoker Past Alcohol Use History: None Reported Additional Past Alcohol Use History / Comment(s): quit 2000 Past Drug Use History: None Reported Medications and Allergies Home Medications Medication Instructions Recorded Confirmed Type Docusate [Colace] 100 mg PO HS 08/09/18 02/22/25 History Chlorthalidone [Hygroton] 25 mg PO DAILY 02/13/21 02/22/25 History Methenamine/Sodium Salicylate [Azo 2 tab PO DAILY 02/22/25 02/22/25 History Urinary Tract Defense Tab] Multivitamins, Thera [Multivitamin 1 tab PO HS 02/22/25 02/22/25 History (formulary)] Omeprazole [PriLOSEC] 20 mg PO DAILY 02/22/25 02/22/25 History Allergies Allergy/AdvReac Type Severity Reaction Status Date / Time sulfamethoxazole Allergy Rash/Hives Verified 02/22/25 15:13 [From Bactrim] trimethoprim [From Bactrim] Allergy Rash/Hives Verified 02/22/25 15:13 Physical Exam Vitals: Vital Signs Temp Pulse Pulse Resp BP BP Pulse Ox 02/23/25 07:00 98.8 F 83 16 125/69 95 02/23/25 02:00 80 02/23/25 00:15 97.8 F 80 18 116/68 98 02/22/25 20:15 69 02/22/25 19:00 98 F 69 18 116/68 97 02/22/25 17:36 77 17 101/70 98 02/22/25 16:00 66 17 95/69 99 02/22/25 15:00 75 12 124/71 97 02/22/25 14:00 93 19 147/74 99 02/22/25 12:24 98.2 F 94 18 140/80 99 Intake and Output 02/22/25 02/23/25 02/23/25 22:59 06:59 14:59 Other: Voiding Method Toilet # Voids 2 2 Weight 82.554 kg Results 02/22/25 12:36 02/22/25 12:35 Cardiac Enzymes 02/22/25 02/22/25 02/22/25 Range/Units 12:35 12:35 15:59 AST 19 (14-36) U/L Troponin I <0.012 <0.012 (0.000-0.034) ng/mL 02/22/25 Range/Units 19:55 AST (14-36) U/L Troponin I <0.012 (0.000-0.034) ng/mL Coagulation 02/22/25 Range/Units 12:36 PT 10.6 (10.0-12.5) sec APTT 24.3 (22.0-30.0) sec CBC 02/22/25 Range/Units 12:36 WBC 5.54 (4.50-10.00) 10*3/uL RBC 4.45 (4.10-5.20) 10*6/uL Hgb 13.6 (12.0-15.0) g/dL Hct 40.4 (37.2-46.3) % Plt Count 278 (140-440) 10*3/uL Comprehensive Metabolic Panel 02/22/25 Range/Units 12:35 Sodium 140 (137-145) mmol/L Potassium 4.0 (3.5-5.1) mmol/L Chloride 101 (98-107) mmol/L Carbon Dioxide 25 (22-30) mmol/L BUN 13 (7-17) mg/dL Creatinine 0.81 (0.52-1.04) mg/dL Glucose 147 H (74-99) mg/dL Calcium 10.1 (8.4-10.2) mg/dL AST 19 (14-36) U/L ALT 19 (4-34) U/L Alkaline Phosphatase 66 (38-126) U/L Total Protein 7.8 (6.3-8.2) g/dL Albumin 4.8 (3.5-5.0) g/dL Current Medications Generic Name Dose Route Start Last Admin Trade Name Freq PRN Reason Stop Dose Admin Aspirin 325 mg 02/23/25 09:00 02/23/25 08:24 Aspirin 325 Mg Tab PO 325 mg DAILY CECE Administration Nitroglycerin 0.4 mg 02/22/25 14:37 Nitroglycerin Sl Tabs 0.4 Mg Tab SUBLINGUAL Q5M PRN Chest Pain Nitroglycerin 0.5 inch 02/22/25 14:45 02/23/25 06:07 Nitroglycerin Oint 1 Inch/Gm Packet TOPICAL Not Given Q6HR CECE Intake and Output 02/22/25 02/23/25 02/23/25 22:59 06:59 14:59 Other: Voiding Method Toilet # Voids 2 2 Weight 82.554 kg 02/22/25 12:36 02/22/25 12:35
--- NOTE | 2025-02-23 14:23 | CA ---
Transthoracic Echo Report Name: Chelsy Cobian Age: 55 Gender: F : 1970 Exam Date: 02/23/2025 11:01 Exam Location: [facility] Ht (in): 64 Wt (lb): 182 Ordering Physician: Emeli Crawley Attending/Referring Phys: [id number], Misbah It Instructor Rebeka Michelle RDCS Procedure CPT: Indications: LVF Cardiac Hx: Technical Quality: Fair Contrast 1: Total Dose (mL): Contrast 2: Total Dose (mL): MEASUREMENTS (Male / Female) Normal Values 2D ECHO LV Diastolic Diameter PLAX 4.4 cm 4.2 - 5.9 / 3.9 - 5.3 cm LV Systolic Diameter PLAX 3.1 cm IVS Diastolic Thickness 1.0 cm 0.6 - 1.0 / 0.6 - 0.9 cm LVPW Diastolic Thickness 0.7 cm 0.6 - 1.0 / 0.6 - 0.9 cm LV Relative Wall Thickness 0.4 LVOT Diameter 1.7 cm LV Diastolic Volume MOD BP 101.8 cm??? 67 - 155 / 56 - 104 cm??? LV Systolic Volume MOD BP 37.9 cm??? 22 - 58 / 19 - 49 cm??? LV Ejection Fraction MOD BP 62.8 % >= 55 % LV Cardiac Index MOD BP 2512.5 cm???/min???m??? LV Diastolic Volume MOD 4C 113.1 cm??? LV Systolic Volume MOD 4C 41.6 cm??? LV Ejection Fraction MOD 4C 63.2 % LV Cardiac Index MOD 4C 2807.3 cm???/min???m??? LV Diastolic Length 4C 8.8 cm LV Systolic Length 4C 6.6 cm LV Diastolic Volume MOD 2C 87.5 cm??? LV Systolic Volume MOD 2C 33.8 cm??? LV Ejection Fraction MOD 2C 61.4 % LV Cardiac Index MOD 2C 2109.9 cm???/min???m??? LV Diastolic Length 2C 8.3 cm LV Systolic Length 2C 6.8 cm LA Volume 51.0 cm??? 18 - 58 / 22 - 52 cm??? LA Volume Index 26.0 cm???/m??? 16 - 28 cm???/m??? DOPPLER AV Peak Velocity 173.0 cm/s AV Peak Gradient 12.0 mmHg AV Mean Velocity 119.0 cm/s AV Mean Gradient 6.3 mmHg AV Velocity Time Integral 35.8 cm LVOT Peak Velocity 147.5 cm/s LVOT Peak Gradient 8.7 mmHg LVOT Velocity Time Integral 28.7 cm LVOT Stroke Volume 67.6 cm??? LVOT Stroke Volume Index 36.0 ml/m??? LVOT Cardiac Index 2655.5 cm???/min???m??? AV Area Cont Eq vti 1.9 cm??? AV Area Cont Eq pk 2.0 cm??? MV Area PHT 4.4 cm??? Mitral E Point Velocity 85.3 cm/s Mitral A Point Velocity 87.8 cm/s Mitral E to A Ratio 1.0 MV Deceleration Time 171.3 ms TR Peak Velocity 267.5 cm/s TR Peak Gradient 28.6 mmHg Right Atrial Pressure 5.0 mmHg Pulmonary Artery Systolic Pressu 33.6 mmHg Right Ventricular Systolic Press 33.6 mmHg PV Peak Velocity 91.8 cm/s PV Peak Gradient 3.4 mmHg FINDINGS Left Ventricle Left ventricular ejection fraction is estimated at 60-65 %. Left ventricular cavity size normal. Left ventricular wall thickness normal. No obvious regional wall motion abnormalities. Right Ventricle Normal right ventricular size and function. Right ventricular systolic pressure within normal limits. Right Atrium Normal right atrial size. Left Atrium Normal left atrial size. Mitral Valve Structurally normal mitral valve. No mitral stenosis, regurgitation or prolapse. Aortic Valve Trileaflet aortic valve. No aortic valve stenosis or regurgitation. Tricuspid Valve Structurally normal tricuspid valve. No tricuspid stenosis. Trace to mild tricuspid regurgitation. Pulmonic Valve Structurally normal pulmonic valve. No pulmonic stenosis. Trace pulmonic regurgitation. Pericardium No pericardial effusion. Aorta Normal size aortic root and proximal ascending aorta. CONCLUSIONS Left ventricular ejection fraction 60 to 65% Trace to mild tricuspid regurgitation No pericardial effusion Previewed by: Dr. Zackery Payton DO (Electronically Signed) Final Date: 23 Feb 2025 14:22
--- NOTE | 2025-02-23 14:27 | CA ---
Stress Echo Report Chelsy Cobian Age: 55 Gender: F : 1970 Exam Date: 02/23/2025 11:49 Exam Location: [facility] Ht (in): 64 Wt (lb): 182 Ordering Physician: Emeli Crawley Referring Physician: [id number] Peach Grower: Felix Garcia Technologist Procedure CPT: Indication: Chest Pain ICD-9 Codes: Rhythm: Patient History: Cardiac Medications: SEE CHART Medications in past 24 hours: Contrast: Definity Stress Results Protocol: [place] Total dose(mL): 2 Exercise Duration (min:sec): 6:[address] Depression (mm): Angina Score: Mitchell Score: METS: 7.1 Resting HR: 107 Resting BP: 148 / 79 Peak HR: 156 Peak BP: / 95 Max Predicted HR: 163 96 % Max Predicted HR Target HR: 139 Double Product: Stress Summary: BP Response: Reason for Termination: TARGET HR REACHED/MAX EXERTION Cardiac Symptoms: NO SYMPTOMS ECG Analysis Resting ECG: Stress ECG: Arrhythmia: Echo Analysis Resting Echo: Peak Echo Analysis: MEASUREMENTS (Male/Female) Normal Values CONCLUSIONS Patient underwent dobutamine stress echo with infusion of dobutamine into Stage 2 for a total of 6 minutes. Patient's maximum heart rate was 156 which represented 95% age-predicted maximum heart rate. Stress EKG portion: At baseline patient's EKG showed sinus tachycardia with heart rate 120 bpm with normal axis, nonspecific minimal 0.[address] depressions in the inferior and lateral leads.. At peak dobutamine infusion, EKG showed mild accentuation of baseline EKG abnormalities. Stress echo portion: 2-D echocardiogram was performed in the parasternal long, personal short, apical 2 and apical four-chamber views at rest, low-dose, peak infusion and in recovery. At baseline, echocardiogram showed left ventricular ejection fraction 55% without wall motion abnormalities. With peak infusion, echocardiogram shows improvement in left ventricular ejection fraction, increase contractility, decrease in left ventricular end systolic dimension without wall motion abnormalities consistent with a normal response to dobutamine. Conclusions: 1. Nonspecific stress EKG portion second baseline EKG abnormalities 2. Normal stress echo portion without inducible ischemia Dr. Zackery Payton DO (Electronically Signed) Final Date: 23 Feb 2025 14:26
[2025-02-23 19:30] VITALS: BP 113/63; PULSE 79; RESP 18; TEMP 97.7
--- NOTE | 2025-02-24 00:32 | DS ---
DISCHARGE SUMMARY CHIEF COMPLAINT: Chest pain. HISTORY OF PRESENT ILLNESS AND PHYSICAL EXAMINATION: Details of this lady's history and physical can be found in the initial workup. LABORATORY STUDIES: While she is in the hospital, she had laboratory studies, details of which can be found in the laboratory section of her chart. COURSE IN THE HOSPITAL: After admission, she was placed on bedrest, started on intravenous fluids and had serial EKGs and enzymes. She was seen by Cardiology. It was felt that this was chest wall pain and noncardiac. It was felt that she could go home on her usual activity, medications, and a regular diet and be followed up in the office in several days. FINAL DIAGNOSIS: Anterior chest wall pain. OPERATIONS: None. CONSULTATIONS: Cardiology. She has improved. MMODL / IJN: [id number] /
--- NOTE | 2025-02-24 02:17 | HP ---
HISTORY AND PHYSICAL CHIEF COMPLAINT: Chest pain. HISTORY OF PRESENT ILLNESS: This lady came into the emergency room, complaining of chest pain which has been going on and off for 2 weeks. It was more in the lower anterior chest and towards the left costal margin. She has had no shortness of breath, diaphoresis, aching in the jaw, nausea, syncope, cough, hemoptysis, etc. Studies in the ER were unremarkable. Past medical history, family history, personal and social histories reveal that she has been in fairly good health. She does have mild essential hypertension. She takes chlorthalidone, lisinopril, vitamin D, and Benadryl occasionally. She is allergic to sulfa. Remainder of her history is essentially unremarkable. Surgically, she has had an appendectomy and a tubal ligation. She used to smoke, but does not any longer. She does not drink alcohol. There is no significant family history of heart disease. PHYSICAL EXAMINATION: VITAL SIGNS: Normal. HEAD, EARS, EYES, NOSE, MOUTH AND THROAT: Normal. CHEST: Clear. Cardiac exam is normal. ABDOMEN: Soft and nontender. CHEST WALL: Nontender. EXTREMITIES: Normal. NEUROLOGICAL: She is intact. ASSESSMENT: She is admitted to the hospital with diagnosis of: 1. Atypical chest pain. PLAN: 1. Bedrest. 2. IV fluids. 3. Serial EKGs and enzymes. MMODL / IJN: [id number] /
--- NOTE | 2025-02-24 04:32 | PN ---
PROGRESS NOTE DATE OF SERVICE: 02/23/2025 CHIEF COMPLAINT: Chest pain. HISTORY OF PRESENT ILLNESS: This lady is doing well and she does not seem to be having any difficulty. Studies are pending. PHYSICAL EXAMINATION: CHEST: Clear. CARDIAC EXAM: Normal. ABDOMEN: Soft and nontender. IMPRESSION: Chest pain, atypical. PLAN: Await balance of further studies to be done and then she will be able to be discharged. MMODL / IJN: [id number] /
== END 2025-02-23 19:53 | disposition home or self-care (01) ==
LOC: EC 12:20 → 6NMEDSUR 14:38
PROVIDERS: ADMIT Family Medicine; ATTEND Family Medicine
DX: R07.89 Other chest pain (principal); F32.A Depression, unspecified; I10 Essential (primary) hypertension; K21.9 Gastro-esophageal reflux disease without esophagitis; Z85.820 Personal history of malignant melanoma of skin; Z87.891 Personal history of nicotine dependence; Z79.899 Other long term (current) drug therapy; Z88.2 Allergy status to sulfonamides; Z82.49 Family history of ischemic heart disease and other diseases of the circulatory system
CPT/HCPCS: 99285; 36415; 93005; 93306; 80061; 80053; 83735; 84484; 85025; 85610; 85730; 71046; G0378 ×2; C8930; Q9957; 93351